=== PATIENT | male | born 1965 | race Caucasian/White ===

== ENCOUNTER 2022-03-13 09:19 | Outpatient (CLI) | payer BC, SELFPAY ==
[2022-03-13 11:11] LABS: Chloride* 105 mmol/L (96-114); Potassium* 4.4 mmol/L (3.6-5.1); Sodium* 141 mmol/L (135-149)
[2022-03-13 11:13] LABS: Cholesterol* 155 mg/dL (90-199); Creatinine* 0.9 mg/dL (0.5-1.5); Estimated Glomerular Filt Rate 101 ml/min
[2022-03-13 11:14] LABS: Alanine Aminotransferase* 30 U/L (4-50); Blood Urea Nitrogen* 17 mg/dL (7-30); Calcium* 9.8 mg/dL (8.4-10.6); Carbon Dioxide* 27 mmol/L (20-32); Glucose* 118 mg/dL (60-115); HDL Cholesterol* 46 mg/dL (>=40); LDL Cholesterol Calculated 73 mg/dL (<100); Triglycerides* 178 mg/dL (40-149)
[2022-03-13 14:41] LABS: PSA Screen* 0.77 ng/mL (0.10-4.00)
== END 2022-03-13 09:20 | disposition home or self-care (01) ==
PROVIDERS: PCP Family Medicine; Visit Provider Family Medicine
DX: E78.5 Hyperlipidemia, unspecified (principal); I10 Essential (primary) hypertension; I25.10 Atherosclerotic heart disease of native coronary artery without angina pectoris; Z12.5 Encounter for screening for malignant neoplasm of prostate
CPT/HCPCS: 80048; 80061; 84153; 84460

== ENCOUNTER 2022-09-11 18:06 | Inpatient (IN) | payer OTHER, SELFPAY ==
[2022-09-11] VITALS (35 sets, daily range): BP systolic 58–154; BP diastolic 35–138; PULSE 56–95; RESP 18; TEMP 36.2–36.6; O2SAT 83–99; BMI 28.9
--- NOTE | 2022-09-11 18:32 | CRLHL7_ITS ---
For Patients: As a result of the Century Cures Act, medical imaging exams and procedure reports are released immediately into your electronic medical record. You may view this report before your referring provider. If you have questions, please contact your health care provider. CLINICAL HISTORY: Vertigo. TECHNIQUE: CTA neck with contrast bolus tracking. 3D angiographic rendering using maximum intensity projection (MIP) and images permanently archived. COMPARISON: None available. FINDINGS: The great vessels are patent. The common carotid arteries are patent. The proximal ICAs are patent without signficant stenoses by NASCET criteria. The more distal cervical ICAs are patent. The origins of the vertebral arteries are patent. The cervical segments of the vertebral arteries are patent. IMPRESSION: Patent cervical arterial vasculature without hemodynamically significant luminal stenosis. Please note that all CT scans at this facility use dose modulation, iterative reconstruction, and/or weight-based dosing when appropriate to reduce radiation dose to as low as reasonably achievable. Dictated by Isaak Gao MD @ 09/11/2022 11:14:45 PM (Electronically Signed)
--- NOTE | 2022-09-11 18:32 | CRLHL7_ITS ---
For Patients: As a result of the Century Cures Act, medical imaging exams and procedure reports are released immediately into your electronic medical record. You may view this report before your referring provider. If you have questions, please contact your health care provider. INDICATION: Vertigo. TECHNIQUE: CT head without contrast. COMPARISON: March 20, 2019. FINDINGS: CSF spaces: Within normal limits for age. Brain parenchyma and extra-axial spaces: The chambers-white differentiation is normal. No sign of mass, hemorrhage, or midline shift. No extra-axial fluid collection. Skull base and calvarium: The visualized paranasal sinuses and mastoid air cells demonstrate no acute or significant findings. The visualized orbits are grossly unremarkable. No skull fractures. IMPRESSION: No acute intracranial abnormality. Please note that all CT scans at this facility use dose modulation, iterative reconstruction, and/or weight-based dosing when appropriate to reduce radiation dose to as low as reasonably achievable. Dictated by Alexis Lane MD @ 09/11/2022 7:37:10 PM (Electronically Signed)
--- NOTE | 2022-09-11 18:32 | CRLHL7_ITS ---
For Patients: As a result of the Century Cures Act, medical imaging exams and procedure reports are released immediately into your electronic medical record. You may view this report before your referring provider. If you have questions, please contact your health care provider. CLINICAL HISTORY: Vertigo. TECHNIQUE: CTA head with contrast bolus tracking. 3D angiographic rendering using maximum intensity projection (MIP) and images permanently archived. COMPARISON: None available. FINDINGS: The petrous, cavernous, and supraclinoid segments of the internal carotid arteries are patent. The anterior and middle cerebral arteries are patent. The anterior communicating artery is visualized and is within normal limits. The intracranial vertebral arteries, basilar trunk, and posterior cerebral arteries are patent. No intracranial proximal large vessel occlusion or flow-limiting luminal stenosis. No evidence of cerebral aneurysm. No findings to suggest an arterial-venous shunting lesion. IMPRESSION: No intracranial proximal large vessel occlusion, flow-limiting luminal stenosis, or cerebral aneurysm. Please note that all CT scans at this facility use dose modulation, iterative reconstruction, and/or weight-based dosing when appropriate to reduce radiation dose to as low as reasonably achievable. Dictated by Isaak Gao MD @ 09/11/2022 11:15:20 PM (Electronically Signed)
--- NOTE | 2022-09-11 18:35 | ED.GENADULT ---
HPI - General Adult General Chief complaint: Neuro Symptoms/Altered Deficit Stated complaint: slurring speech, vomiting Time Seen by Provider: 09/11/22 18:17 History of Present Illness HPI narrative: This 56-year-old male comes in reporting slurred speech since this morning. He also has had vertigo symptoms today. This vertigo is present when he is upright and moving but if he remains still it is absent. He has had some associated nausea and vomiting with vertigo. He does also reports some hearing changes in his left ear. He states that his sense of perception seems altered. His speech seems completely normal to me at this time but his family member states that she thinks that it is not normal. He does not report any unilateral weakness. Related Data Home Medications Medication Instructions Recorded Confirmed ascorbic acid (vitamin C) 250 mg 250 mg PO DAILY 03/12/22 05/08/22 tablet aspirin 81 mg tablet,delayed 81 mg PO QDAY 03/13/22 05/08/22 release (Adult Aspirin Regimen) multivitamin (Daily Multi-Vitamin 1 tab PO QDAY 03/13/22 05/08/22 tablet) albuterol sulfate 90 mcg/actuation 1 puff inhalation Q6-8H PRN 05/07/22 05/07/22 aerosol inhaler nitroglycerin 0.4 mg sublingual 0.4 mg buccal Q5-15M PRN 05/07/22 05/07/22 tablet omeprazole 20 mg capsule,delayed 20 mg PO QDAY 05/07/22 05/07/22 release omega 6-ntk-rsa-fish oil 1,000 mg 2 cap PO QDAY 05/08/22 05/08/22 (120 mg-180 mg) capsule (Fish Oil) Previous Rx's Medication Instructions Recorded clopidogrel 75 mg tablet 75 mg PO QDAY #90 tabs 04/27/22 lisinopril 10 mg tablet 10 mg PO QDAY #90 tabs 04/27/22 metoprolol succinate 50 mg 50 mg PO QDAY #90 tabs 04/27/22 tablet,extended release 24 hr rosuvastatin 40 mg tablet 40 mg PO QDAY #90 tabs 04/27/22 ezetimibe 10 mg tablet (Zetia) 10 mg PO QDAY #90 tabs 05/01/22 fluoxetine 40 mg capsule 40 mg PO QDAY #90 caps 05/08/22 lorazepam 1 mg tablet 1 - 2 mg (1 - 2 x 1 mg) PO TID PRN 05/08/22 anxiety #60 tabs trazodone 100 mg tablet 50 - 100 mg (0.5 - 1 x 100 mg) PO 05/18/22 QHS #90 tabs Allergies Allergy/AdvReac Type Severity Reaction Status Date / Time atorvastatin Allergy Mild muscle Verified 05/08/22 10:20 cramping Review of Systems Status of ROS: Reports: 10 or more systems reviewed and unremarkable except as noted in History and below Narrative: Constitutional: No fevers, no weight gain or loss. Eyes: No discharge. He states that he sees double vision sometimes. HENT: No congestion, no sore throat, no ear pain. Cardiovascular: No chest pain, no palpitations. Respiratory: No shortness of breath, no wheezes, no cough. Gastrointestinal: No abdominal pain, no vomiting, no diarrhea. Genitourinary: No dysuria, no hematuria. Musculoskeletal: Normal range of motion. Skin: No rashes, no pruritis. Neurological: He reports slurred speech and vertigo symptoms. Endo/Heme/Allergies: No bruising or bleeding. No polydipsia. Pysch: no suicidality. All other systems reviewed and are negative. [facility] Medical History (Updated 09/11/22 @ 19:56 by Herman Rahman MD) Adjustment disorder with depressed mood ?F43.21 - Adjustment disorder with depressed mood (ICD-10) Grief ?F43.21 - Adjustment disorder with depressed mood (ICD-10) Contracture of joint of finger of right hand ?M24.541 - Contracture, right hand (ICD-10) Insomnia ?G47.00 - Insomnia, unspecified (ICD-10) Viral gastroenteritis due to [place] virus (01/23/19) ?A08.11 - Acute gastroenteropathy due to [place] agent (ICD-10) Obstructive sleep apnea syndrome ?G47.33 - Obstructive sleep apnea (adult) (pediatric) (ICD-10) Infection due to severe acute respiratory syndrome coronavirus 2 (SARS-CoV-2) (03/2021) ?U07.1 - COVID-19 (ICD-10) Hyperlipidemia ?E78.5 - Hyperlipidemia, unspecified (ICD-10) History of intestinal obstruction (03/01/17) ?Z87.19 - Personal history of other diseases of the digestive system (ICD-10) History of adenomatous polyp of colon (05/03/18) ?Z86.010 - Personal history of colonic polyps (ICD-10) Gastroesophageal reflux disease ?K21.9 - Gastro-esophageal reflux disease without esophagitis (ICD-10) Fracture of facial bone (03/20/19) ?S02.92XA - Unspecified fracture of facial bones, initial encounter for closed fracture (ICD-10) Allergic rhinitis ?J30.9 - Allergic rhinitis, unspecified (ICD-10) Acute pancreatitis ?K85.90 - Acute pancreatitis without necrosis or infection, unspecified (ICD-10) CAD (coronary artery disease) ?I25.10 - Atherosclerotic heart disease of [place] coronary artery without angina pectoris (ICD-10) Surgical History (Updated 03/10/22 @ 13:22 by Sterling Ramirez) History of repair of right rotator cuff ?Z98.890 - Other specified postprocedural states (ICD-10) History of repair of left rotator cuff ?Z98.890 - Other specified postprocedural states (ICD-10) History of lumbar surgery (03/19/15) ?Z98.890 - Other specified postprocedural states (ICD-10) History of laparoscopic cholecystectomy (07/2019) ?Z90.49 - Acquired absence of other specified parts of digestive tract (ICD-10) History of hand surgery ?Z98.890 - Other specified postprocedural states (ICD-10) History of coronary artery stent placement (02/2000) ?Z95.5 - Presence of coronary angioplasty implant and graft (ICD-10) History of colonoscopy (05/03/18) ?Z98.890 - Other specified postprocedural states (ICD-10) History of cataract extraction (09/2018) ?Z98.49 - Cataract extraction status, unspecified eye (ICD-10) History of appendectomy ?Z90.49 - Acquired absence of other specified parts of digestive tract (ICD-10) Family History (Updated 03/10/22 @ 13:27 by Sterling Ramirez) Mother COPD (chronic obstructive pulmonary disease) Father Heart disease Pancreatic cancer Family/Other Prostate cancer Social History (Updated 05/30/22 @ 18:54 by Washington Diaz MD) Narrative: , two sons - one with special needs, construction, non-smoker Smoking Status: Former smoker Little interest or pleasure in doing things: nearly every day Feeling down, depressed, or hopeless: nearly every day Exam Narrative: Exam Narrative: Constitutional: Well-developed, well-nourished, no acute distress. HEENT: Normocephalic, atraumatic. Neck: Normal range of motion. Nontender. Supple. Heart: Regular. No murmurs. Normal rate. Intact distal pulses. Lungs: Clear to auscultation. No chest discomfort. No wheezes, rhonchi, or rales. Abdomen: Normal bowel sounds. Nontender. No rebound tenderness. Genitalia: Deferred. Back: No midline tenderness. Normal range of motion. Extremities: Normal range of motion. No injury. Skin: Intact. No rash. Warm. No erythema or pallor. Neurologic: No altered sensation. No weakness. Alert and oriented. Tongue is midline. No facial asymmetry. Speech seems normal to me. Qypfji-[id number]-uzua is normal. No pronator drift. Photo Editor strength is equal bilaterally. He is able to raise each leg from the bed to touch my hand. Psychiatric: No suicidality. Nursing notes and vitals signs are reviewed. Const: Vital Signs, click to edit/add: Vital Signs - 24 hr 09/11/22 18:09 Temperature 97.8 F Pulse Rate [Right Femoral] 65 Respiratory Rate 18 Blood Pressure [Ri ght Upper Arm] 118/72 Pulse Oximetry 98 Oxygen Delivery Me thod Room Air Course Vital Signs Vital signs: Initial Vital Signs Temperature 97.8 F 09/11/22 18:09 Temperature Source Temporal Artery Scan 09/11/22 18:09 Pulse Rate 65 09/11/22 18:09 Respiratory Rate 18 09/11/22 18:09 Blood Pressure 118/72 09/11/22 18:09 Blood Pressure Mean 87 09/11/22 18:09 Blood Pressure Position Sitting 09/11/22 18:09 Pulse Oximetry 98 09/11/22 18:09 Oxygen Delivery Method Room Air 09/11/22 18:09 Vital Signs Temperature 97.8 F 09/11/22 18:09 Pulse Rate 65 09/11/22 18:09 Respiratory Rate 18 09/11/22 18:09 Blood Pressure 118/72 09/11/22 18:09 Pulse Oximetry 98 09/11/22 18:09 Oxygen Delivery Method Room Air 09/11/22 18:09 Temperature 97.8 F 09/11/22 18:09 Pulse Rate 65 09/11/22 18:09 Respiratory Rate 18 09/11/22 18:09 Blood Pressure 118/72 09/11/22 18:09 Pulse Oximetry 98 09/11/22 18:09 Oxygen Delivery Method Room Air 09/11/22 18:09 Medical Decision Making MDM Narrative Medical decision making narrative: This patient comes in with vertigo symptoms and associated nausea. He states that his speech is slurred however it appears to be completely normal to me. He has a normal neurologic exam. He does not report a headache. He does report some left-sided ringing in his ear and may be showing some vertigo symptoms suggestive of Meniere's disease. An IV was established and labs are acquired. The labs returned with reassuring results. His head CT also is negative. At the end of my shift results for the CT angiogram of his head are yet pending. Dr. Grove will look after these results. Lab Data Labs: Lab Results 09/11/22 Range/Units 18:40 WBC 6.13 (4.50-11.00) K/uL RBC 4.95 (4.30-5.90) m/uL Hgb 15.2 (13.5-17.5) gm/dL Hct 46.5 (37.0-53.0) % MCV 94 (80-100) fL MCH 31 (26-34) pg MCHC 33 (32-36) gm/dL RDW Coeff of Connor 13.8 (11.5-15.5) % Plt Count 186 (140-440) K/uL Neut % (Auto) 84.5 H (42.0-72.0) % Lymph % (Auto) 8.3 L (20-44) % [place]ah % (Auto) 6.7 (0.0-11.0) % Eos % (Auto) 0.3 (0.0-7.0) % Baso % (Auto) 0.0 (0.0-3.0) % Neut # (Auto) 5.20 (1.7-7.0) K/uL Lymph # (Auto) 0.50 L (0.90-2.90) K/uL Sequ[place]ah # (Auto) 0.40 (0.00-0.90) K/UL Eos # (Auto) 0.02 (0.00-0.50) K/uL Baso # (Auto) 0.00 (0.00-0.30) K/uL Abs Immat Gran (auto) 0.01 (0.00-0.30) K/uL Imm/Tot Granulo (auto) 0.2 % Sodium 137 (135-149) mmol/L Potassium 4.2 (3.6-5.1) mmol/L Chloride 101 (96-114) mmol/L Carbon Dioxide 23 (20-32) mmol/L BUN 23 (7-30) mg/dL Creatinine 2.2 H (0.5-1.5) mg/dL Estimated Creat Clear 37.14 Estimated GFR 35 ml/min Glucose 113 (60-115) mg/dL Calcium 9.2 (8.4-10.6) mg/dL Imaging Data CT scan - head: Radiologist's impression: No acute intracranial abnormality. Discharge Plan Discharge Clinical Impression: Vertigo Prescriptions: No Action ascorbic acid (vitamin C) 250 mg tablet 250 mg PO DAILY aspirin [Adult Aspirin Regimen] 81 mg tablet,delayed release (DR/EC) 81 mg PO QDAY multivitamin [Daily Multi-Vitamin] Tablet 1 tab PO QDAY omega 6-xyy-lct-fish oil [Fish Oil] 1,000 mg (120 mg-180 mg) capsule 2 cap PO QDAY ezetimibe [Zetia] 10 mg tablet 10 mg PO QDAY Qty: 90 3RF omeprazole 20 mg capsule,delayed release(DR/EC) 20 mg PO QDAY nitroglycerin 0.4 mg tablet, sublingual 0.4 mg buccal Q5-15M PRN Rx Instructions: PRN CHEST PAIN albuterol sulfate 90 mcg/actuation HFA aerosol inhaler 1 puff inhalation Q6-8H PRN fluoxetine 40 mg capsule 40 mg PO QDAY Qty: 90 1RF lorazepam 1 mg tablet 1 - 2 mg PO TID PRN (Reason: anxiety) Qty: 60 0RF lisinopril 10 mg tablet 10 mg PO QDAY Qty: 90 1RF clopidogrel 75 mg tablet 75 mg PO QDAY Qty: 90 1RF rosuvastatin 40 mg tablet 40 mg PO QDAY Qty: 90 1RF metoprolol succinate 50 mg tablet extended release 24 hr 50 mg PO QDAY Qty: 90 1RF trazodone 100 mg tablet 50 - 100 mg PO QHS Qty: 90 1RF Follow Up/Referrals: Washington Diaz MD [Primary Care Provider] -
[2022-09-11 18:46] LABS: Eosinophils Absolute Auto 0.02 K/uL (0.00-0.50); Eosinophils Percent Auto 0.3 % (0.0-7.0); Hematocrit 46.5 % (37.0-53.0); Hemoglobin* 15.2 gm/dL (13.5-17.5); Immature Granulocytes Abs Auto 0.01 K/uL (0.00-0.30); Immature Granulocytes Pct Auto 0.2 %; Lymphocytes Percent Auto 8.3 % (20-44); Mean Corpuscular HGB Conc 33 gm/dL (32-36); Mean Corpuscular Hemoglobin 31 pg (26-34); Mean Corpuscular Volume 94 fL (80-100); Monocytes Percent Auto 6.7 % (0.0-11.0); Neutrophils Percent Auto 84.5 % (42.0-72.0); Platelet Count* 186 K/uL (140-440); RDW Coefficient of Variation % 13.8 % (11.5-15.5); Red Blood Count 4.95 m/uL (4.30-5.90); White Blood Count* 6.13 K/uL (4.50-11.00)
[2022-09-11 18:47] LABS: Slide Review Reflex No
[2022-09-11] MEDS: ONDANSETRON 2 MG/ML inj 4 MG IVP (18:57)
[2022-09-11] MEDS: MECLIZINE HCL 25 MG TABLET PO (18:57)
--- NOTE | 2022-09-11 19:00 | ED.NURSE ---
Patient to CT.
[2022-09-11 19:01] LABS: Chloride* 101 mmol/L (96-114); Potassium* 4.2 mmol/L (3.6-5.1); Sodium* 137 mmol/L (135-149)
[2022-09-11 19:03] LABS: Creatinine* 2.2 mg/dL (0.5-1.5); Est. Creatinine Clearance* 37.14; Estimated Glomerular Filt Rate 35 ml/min
[2022-09-11 19:04] LABS: Blood Urea Nitrogen* 23 mg/dL (7-30); Calcium* 9.2 mg/dL (8.4-10.6); Carbon Dioxide* 23 mmol/L (20-32); Glucose* 113 mg/dL (60-115)
--- NOTE | 2022-09-11 19:50 | ED.NURSE ---
Pt O2 sats noted to be ~77% on RA. Pt BP also trending lower, around 85 systolic. MD Grove notified. EKG done.
--- NOTE | 2022-09-11 19:50 | ED.NURSE ---
Patient placed on 2L nasal cannula due to low sats.
[2022-09-11] MEDS: 0.9 % SODIUM CHLORIDE 1000 ml 1,000 ML IV ×2 (20:00→22:00)
[2022-09-11 20:24] LABS: Troponin, Point-of-Care* 0.05 ng/ml (0.01-0.04)
[2022-09-11 21:00] LABS: Troponin, Point-of-Care* 0.08 ng/ml (0.01-0.04)
[2022-09-11 21:41] LABS: Chloride* 100 mmol/L (96-114); Potassium* 4.9 mmol/L (3.6-5.1); Sodium* 134 mmol/L (135-149)
--- NOTE | 2022-09-11 21:43 | ED.NURSE ---
Patient wanted to get up to the bathroom. He was able to ambulate but was unsteady and used the calderón for guidance. He than reported he was unable to void. Bedside bladder scan was done with 396ml in bladder. BP's are running low despite bolus. MD is aware. Verbal was given to give additional 1L bolus.
[2022-09-11 21:44] LABS: Carbon Dioxide* 26 mmol/L (20-32); Creatinine* 2.3 mg/dL (0.5-1.5); Est. Creatinine Clearance* 35.52; Estimated Glomerular Filt Rate 33 ml/min
[2022-09-11 21:45] LABS: Blood Urea Nitrogen* 23 mg/dL (7-30); Calcium* 8.5 mg/dL (8.4-10.6); Glucose* 110 mg/dL (60-115)
[2022-09-11 21:50] LABS: Acetaminophen* < 10.0 ug/mL (10.0-30.0); Salicylate* < 1.0 mg/dL (1.0-10)
[2022-09-11] MEDS: NALOXONE 1 MG/ML SYRINGE IV (21:52)
--- NOTE | 2022-09-11 21:58 | ED.NURSE ---
Received call from lab that Trop I was critical at 0.1. Dr. Grove verbally notified at [id number]. Requesting page to cardiology.
--- NOTE | 2022-09-11 22:06 | CRLHL7_ITS ---
For Patients: As a result of the Cures Act, medical imaging exams and procedure reports are released immediately into your electronic medical record. You may view this report before your referring provider. If you have questions, please contact your health care provider. Indication: Weakness Technique: AP view of the chest Comparison: CT chest on May 17, 2020 Findings: Lung volumes are slightly low with bilateral perihilar prominence. No pleural effusion or pneumothorax. Normal heart size. Normal mediastinal contour. No acute fracture. Visualized upper abdomen is unremarkable. Mild right glenohumeral degenerative changes. Impression: Bilateral perihilar prominence is likely due to low lung volumes, less likely pulmonary edema. Dictated by Dain Young MD @ 09/11/2022 10:27:18 PM (Electronically Signed)
[2022-09-11 22:24] LABS: Amphetamine Screen Urine Negative (Negative); Barbiturate Screen Urine Negative (Negative); Cannabinoid Screen Urine Negative (Negative); Cocaine Screen Urine Negative (Negative); Methadone Screen Urine Negative (Negative); Methamphetamines Screen Urine Negative (Negative); Phencyclidine Screen Urine Negative (Negative); Tricyclic Antidepressant Urine Negative (Negative)
[2022-09-11 22:25] LABS: Opiate Screen Urine POSITIVE (Negative); Oxycodone Screen Urine Negative (Negative)
[2022-09-11 22:26] LABS: Benzodiazepines Screen Urine POSITIVE (Negative)
[2022-09-11 22:38] LABS: Ethanol* < 0.01 % (0.01-0.03)
[2022-09-11] MEDS: LACTATED RINGERS 1000 ML IV (23:39)
[2022-09-11 23:40] LABS: HCO3 VBG 25 mmol/L (21-28); PCO2 VBG 55 mmHG (40-50); PO2 VBG 39.4 mmHG (25-47); pH VBG 7.256 (7.32-7.43)
[2022-09-12] VITALS (21 sets, daily range): BP systolic 79–118; BP diastolic 50–78; PULSE 64–78; RESP 12–18; TEMP 36.2–36.8; O2SAT 90–94
--- NOTE | 2022-09-12 00:08 | PM.IMHP1 ---
Hospitalist- H&P: HPI History of Present Illness Date Seen: 09/12/22 Chief complaint: slurring speech, vomiting Narrative: Rohan Duncan (Jim) is a 56 year old male with approximately 1 and half days of onset of severe leg cramps, trouble walking, slurred speech, altered mental status and today multiple episodes of nonbloody emesis. History is primarily obtained from his [id number] who brought him to the emergency room. He does corroborate some of the information. Approximately morning, a day and a half ago he started to have fairly severe leg cramps. Made it painful and difficult for him to walk. By last night he was also slurring his speech and seemed to have altered mental status. Today he vomited 4 times. It was nonbloody. He was not having any abdominal pain. He has had very little to eat and drink today. His mental status is declining. He is having more trouble walking any peers to stagger when he walks. He continues to slur his speech. His in April 2022 after a prolonged newman with cancer. Since then he reports that he has been suffering grief/depression and things have gone downhill for him. He started drinking heavily. He started smoking cigarettes again. He has been taking lorazepam. He feels tired all the time. He has not been eating and drinking well. He thinks he has been losing weight. He acknowledges depression. He has arranged for outpatient therapy starting September 24 at [facility] in [place]. He acknowledges that he feels like he is giving up but denies active suicidality. He denies accidental or intentional ingestion of mood altering substances. In the emergency department his tox screen did show benzodiazepines and opiates. He does acknowledge that he has been using lorazepam 1 mg 2 or 3 times a day and he did take a tramadol tablet today. Initial evaluation the emergency room focused on slurred speech. He had a head CT and CTA which was unremarkable. He received flumazenil and Narcan with improvement in his mental status. He received 2 L of IV fluids but remained hypotensive. Review of Systems Narrative: Limited review of systems secondary to altered mental status. Primary reporting from his [id number] and the patient confirms this is his overall decline in his well being since his and his acute symptoms of leg cramps, vomiting, confusion, unsteady gait in the last day and half. He denies trouble breathing, chest pain, syncope, abdominal pain, diarrhea, constipation, urinary problems. [facility] Medical History (Updated 09/12/22 @ 00:30 by Juan F Maritnez MD) Smoking ?F17.200 - Nicotine dependence, unspecified, uncomplicated (ICD-10) Adjustment disorder with depressed mood ?F43.21 - Adjustment disorder with depressed mood (ICD-10) Grief ?F43.21 - Adjustment disorder with depressed mood (ICD-10) Contracture of joint of finger of right hand ?M24.541 - Contracture, right hand (ICD-10) Insomnia ?G47.00 - Insomnia, unspecified (ICD-10) Viral gastroenteritis due to [place] virus (01/23/19) ?A08.11 - Acute gastroenteropathy due to [place] agent (ICD-10) Obstructive sleep apnea syndrome ?G47.33 - Obstructive sleep apnea (adult) (pediatric) (ICD-10) Infection due to severe acute respiratory syndrome coronavirus 2 (SARS-CoV-2) (03/2021) ?U07.1 - COVID-19 (ICD-10) Hyperlipidemia ?E78.5 - Hyperlipidemia, unspecified (ICD-10) History of intestinal obstruction (03/01/17) ?Z87.19 - Personal history of other diseases of the digestive system (ICD-10) History of adenomatous polyp of colon (05/03/18) ?Z86.010 - Personal history of colonic polyps (ICD-10) Gastroesophageal reflux disease ?K21.9 - Gastro-esophageal reflux disease without esophagitis (ICD-10) Fracture of facial bone (03/20/19) ?S02.92XA - Unspecified fracture of facial bones, initial encounter for closed fracture (ICD-10) Allergic rhinitis ?J30.9 - Allergic rhinitis, unspecified (ICD-10) Acute pancreatitis ?K85.90 - Acute pancreatitis without necrosis or infection, unspecified (ICD-10) CAD (coronary artery disease) ?I25.10 - Atherosclerotic heart disease of [place] coronary artery without angina pectoris (ICD-10) Surgical History History of repair of right rotator cuff ?Z98.890 - Other specified postprocedural states (ICD-10) History of repair of left rotator cuff ?Z98.890 - Other specified postprocedural states (ICD-10) History of lumbar surgery (03/19/15) ?Z98.890 - Other specified postprocedural states (ICD-10) History of laparoscopic cholecystectomy (07/2019) ?Z90.49 - Acquired absence of other specified parts of digestive tract (ICD-10) History of hand surgery ?Z98.890 - Other specified postprocedural states (ICD-10) History of coronary artery stent placement (02/2000) ?Z95.5 - Presence of coronary angioplasty implant and graft (ICD-10) History of colonoscopy (05/03/18) ?Z98.890 - Other specified postprocedural states (ICD-10) History of cataract extraction (09/2018) ?Z98.49 - Cataract extraction status, unspecified eye (ICD-10) History of appendectomy ?Z90.49 - Acquired absence of other specified parts of digestive tract (ICD-10) Family History Mother COPD (chronic obstructive pulmonary disease) Father Heart disease Pancreatic cancer Family/Other Prostate cancer Social History (Updated 09/12/22 @ 00:22 by Juan F Martinez MD) Narrative: , two sons - one with special needs, in April 2022 after a prolonged newman with cancer. He is no longer working. He is living off his 's social security disability. He is caring for his special needs 10-year-old son. Code status is full Formally we had a remote history of smoking and alcohol abuse. Gave this up while he was . Has been drinking heavily and started smoking since his . Currently reports that he drank 36 beers in the last week. Smoking Status: Former smoker Little interest or pleasure in doing things: nearly every day Feeling down, depressed, or hopeless: nearly every day Meds Home Medications and Allergies Allergies Allergy/AdvReac Type Severity Reaction Status Date / Time atorvastatin Allergy Mild muscle Verified 05/08/22 10:20 cramping Exam Narrative: Exam Narrative: He is awake would resting with his eyes closed. He opens his eyes in response when I talk with him. He follows commands and answers questions appropriately though with minimal responses. Head is without obvious trauma except possibly a slight abrasion on the left forehead. Pupils are small. Extraocular movements are full. Visual rodriguez are intact. No facial asymmetry. Oropharynx with small airway. No mucosal abnormalities other than dry mouth. Neck is supple without mass or adenopathy. Respirations with diminished breath sounds but no wheezing rales or rhonchi. Cardiovascular: S1, S2, regular rate and rhythm. Abdomen is soft. Bowel sounds are present he has no tenderness or mass. External genitalia normal. He moves all 4 extremities well and he has intact sensation in all 4 extremities. Good peripheral pulses and good capillary refill in all 4 extremities. Skin is without rash. No edema. No apparent external signs of trauma. Const: Vital Signs, click to edit/add: Vital Signs - 24 hr 09/11/22 18:09 09/11/22 19:22 09/11/22 19:30 Temperature 97.8 F Pulse Rate 83 80 Pulse Rate [Right Femoral] 65 Respiratory Rate 18 Blood Pressure Blood Pressure [Ri ght Arm] Blood Pressure [Ri ght Upper Arm] 118/72 Pulse Oximetry 98 86 L 88 Oxygen Delivery Me thod Room Air Oxygen Flow Rate 09/11/22 19:32 09/11/22 19:45 09/11/22 19:47 Temperature Pulse Rate 80 74 73 Pulse Rate [Right Femoral] Respiratory Rate Blood Pressure 93/46 L 72/43 L Blood Pressure [Ri ght Arm] Blood Pressure [Ri ght Upper Arm] Pulse Oximetry 88 83 L 84 L Oxygen Delivery Me thod Oxygen Flow Rate 09/11/22 19:56 09/11/22 20:00 09/11/22 20:00 Temperature Pulse Rate 80 70 Pulse Rate [Right Femoral] Respiratory Rate Blood Pressure 96/51 L Blood Pressure [Ri ght Arm] Blood Pressure [Ri ght Upper Arm] Pulse Oximetry 86 L 87 L 95 Oxygen Delivery Me thod Nasal Cannula Oxygen Flow Rate 09/11/22 20:01 09/11/22 20:06 09/11/22 20:11 Temperature Pulse Rate 69 71 70 Pulse Rate [Right Femoral] Respiratory Rate Blood Pressure 84/45 L 81/43 L 94/46 L Blood Pressure [Ri ght Arm] Blood Pressure [Ri ght Upper Arm] Pulse Oximetry 86 L 87 L 90 Oxygen Delivery Me thod Oxygen Flow Rate 09/11/22 20:12 09/11/22 20:15 09/11/22 20:22 Temperature Pulse Rate 72 71 72 Pulse Rate [Right Femoral] Respiratory Rate Blood Pressure 84/55 L Blood Pressure [Ri ght Arm] Blood Pressure [Ri ght Upper Arm] Pulse Oximetry 88 88 96 Oxygen Delivery Me thod Oxygen Flow Rate 09/11/22 20:30 09/11/22 20:31 09/11/22 20:41 Temperature Pulse Rate 74 71 Pulse Rate [Right Femoral] Respiratory Rate Blood Pressure 113/58 L 89/50 L Blood Pressure [Ri ght Arm] Blood Pressure [Ri ght Upper Arm] Pulse Oximetry 91 95 Oxygen Delivery Me thod Oxygen Flow Rate 09/11/22 20:45 09/11/22 20:52 09/11/22 21:00 Temperature Pulse Rate 69 71 69 Pulse Rate [Right Femoral] Respiratory Rate Blood Pressure 95/66 Blood Pressure [Ri ght Arm] Blood Pressure [Ri ght Upper Arm] Pulse Oximetry 95 94 95 Oxygen Delivery Me thod Nasal Cannula Oxygen Flow Rate 2 09/11/22 21:15 09/11/22 21:16 09/11/22 21:17 Temperature Pulse Rate 56 L 63 62 Pulse Rate [Right Femoral] Respiratory Rate Blood Pressure 78/46 L Blood Pressure [Ri ght Arm] Blood Pressure [Ri ght Upper Arm] Pulse Oximetry 85 L 94 99 Oxygen Delivery Me thod Oxygen Flow Rate 09/11/22 21:23 09/11/22 21:30 09/11/22 21:31 Temperature Pulse Rate 64 63 64 Pulse Rate [Right Femoral] Respiratory Rate Blood Pressure 67/35 L Blood Pressure [Ri ght Arm] Blood Pressure [Ri ght Upper Arm] Pulse Oximetry 96 98 96 Oxygen Delivery Me thod Oxygen Flow Rate 09/11/22 21:32 09/11/22 21:41 09/11/22 21:45 Temperature Pulse Rate 59 L 62 63 Pulse Rate [Right Femoral] Respiratory Rate Blood Pressure 77/43 L 71/41 L Blood Pressure [Ri ght Arm] Blood Pressure [Ri ght Upper Arm] Pulse Oximetry 98 98 84 L Oxygen Delivery Me thod Oxygen Flow Rate 09/11/22 21:51 09/11/22 22:00 09/11/22 22:03 Temperature Pulse Rate 58 L 76 95 Pulse Rate [Right Femoral] Respiratory Rate Blood Pressure 100/57 L 154/138 H Blood Pressure [Ri ght Arm] Blood Pressure [Ri ght Upper Arm] Pulse Oximetry 98 96 84 L Oxygen Delivery Me thod Oxygen Flow Rate 09/11/22 22:10 09/11/22 22:12 09/11/22 22:41 Temperature 97.2 F L Pulse Rate Pulse Rate [Right Femoral] Respiratory Rate Blood Pressure 58/44 L 114/67 Blood Pressure [Ri ght Arm] Blood Pressure [Ri ght Upper Arm] Pulse Oximetry Oxygen Delivery Me thod Oxygen Flow Rate 09/12/22 00:06 Temperature Pulse Rate Pulse Rate [Right Femoral] Respiratory Rate 14 Blood Pressure Blood Pressure [Ri ght Arm] 80/56 L Blood Pressure [Ri ght Upper Arm] Pulse Oximetry 94 Oxygen Delivery Me thod Nasal Cannula Oxygen Flow Rate 2 Documenting provider has reviewed patient's vital signs: yes Hospitalist - H&P: Result Labs Labs: Short CBC 09/11/22 Range/Units 18:40 WBC 6.13 (4.50-11.00) K/uL Hgb 15.2 (13.5-17.5) gm/dL Hct 46.5 (37.0-53.0) % Plt Count 186 (140-440) K/uL BMP 09/11/22 09/11/22 18:40 21:22 Sodium 137 134 L Potassium 4.2 4.9 Chloride 101 100 Carbon Dioxide 23 26 BUN 23 23 Creatinine 2.2 H 2.3 H Glucose 113 110 Calcium 9.2 8.5 Cardiac Enzymes 09/11/22 Range/Units 21:22 Troponin I 0.10 H* (0.01-0.04) ng/mL ECG Attestation: I personally reviewed and interpreted this ECG as follows: (Normal ECG) Imaging CT scan - head: Radiologist's impression: INDICATION: Vertigo. TECHNIQUE: CT head without contrast. COMPARISON: March 20, 2019. FINDINGS: CSF spaces: Within normal limits for age. Brain parenchyma and extra-axial spaces: The chambers-white differentiation is normal. No sign of mass, hemorrhage, or midline shift. No extra-axial fluid collection. Skull base and calvarium: The visualized paranasal sinuses and mastoid air cells demonstrate no acute or significant findings. The visualized orbits are grossly unremarkable. No skull fractures. IMPRESSION: No acute intracranial abnormality. CLINICAL HISTORY: Vertigo. TECHNIQUE: CTA head with contrast bolus tracking. 3D angiographic rendering using maximum intensity projection (MIP) and images permanently archived. COMPARISON: None available. FINDINGS: The petrous, cavernous, and supraclinoid segments of the internal carotid arteries are patent. The anterior and middle cerebral arteries are patent. The anterior communicating artery is visualized and is within normal limits. The intracranial vertebral arteries, basilar trunk, and posterior cerebral arteries are patent. No intracranial proximal large vessel occlusion or flow-limiting luminal stenosis. No evidence of cerebral aneurysm. No findings to suggest an arterial-venous shunting lesion. IMPRESSION: No intracranial proximal large vessel occlusion, flow-limiting luminal stenosis, or cerebral aneurysm. CLINICAL HISTORY: Vertigo. TECHNIQUE: CTA neck with contrast bolus tracking. 3D angiographic rendering using maximum intensity projection (MIP) and images permanently archived. COMPARISON: None available. FINDINGS: The great vessels are patent. The common carotid arteries are patent. The proximal ICAs are patent without signficant stenoses by NASCET criteria. The more distal cervical ICAs are patent. The origins of the vertebral arteries are patent. The cervical segments of the vertebral arteries are patent. IMPRESSION: Patent cervical arterial vasculature without hemodynamically significant luminal stenosis. Chest x-ray: Radiologist's impression: Indication: Weakness Technique: AP view of the chest Comparison: CT chest on May 17, 2020 Findings: Lung volumes are slightly low with bilateral perihilar prominence. No pleural effusion or pneumothorax. Normal heart size. Normal mediastinal contour. No acute fracture. Visualized upper abdomen is unremarkable. Mild right glenohumeral degenerative changes. Impression: Bilateral perihilar prominence is likely due to low lung volumes, less likely pulmonary edema. Assessment and Plan Assessment and plan (1) Hypotension: Problem comment: Admit to CCU. Treat for sepsis. Evaluate for other causes of shock. Status: Acute (2) Altered mental status: Status: Acute (3) Elevated troponin: Status: Acute (4) Acute kidney injury: Status: Acute (5) Alcohol abuse: Problem comment: History of alcohol abuse. Started drinking heavily since the of his Status: Acute (6) Smoking: Problem comment: Remote history of smoking. Just started smoking again after the of his Status: Acute (7) Grief: Problem comment: Patient has been struggling since April 2022 when his of cancer Status: Acute (8) Obstructive sleep apnea syndrome: Problem comment: severe. AHI=68. see scanned [place] 06/23/16 Sleep Med note. I have asked his lcjnjw-op-xrh to bring his CPAP to the hospital Status: Acute (9) CAD (coronary artery disease): Problem comment: Multiple stents in right coronary in the past Status: Acute (10) Respiratory acidosis: Problem comment: Concern for hypoventilation possibly due to altered mental status Status: Acute Plan Patient is admitted to CCU for evaluation and treatment of hypotension associated with altered mental status, hypoventilation, acute kidney injury, elevated troponin. No clear cause for this constellation of symptoms at this time. Will treat for sepsis and monitor for other causes of shock.
[2022-09-12 00:23] LABS: Creatine Kinase* 171 U/L (54-186)
[2022-09-12 00:27] LABS: C Reactive Protein* 1.1 mg/dL (0.5-1.0)
[2022-09-12 00:39] LABS: Procalcitonin* 0.65 ng/mL (<0.50)
[2022-09-12 00:45] LABS: Appearance Urine Clear (Clear); Bilirubin Urine Negative (Negative); Blood Urine Negative (Negative); Color Urine Yellow (Yellow); Glucose Urine Negative (Negative); Ketones Urine Negative (Negative); Leukocyte Esterase Urine Negative (Negative); Nitrite Urine Negative (Negative); Protein Urine Trace (Negative); Urobilinogen Urine 0.2 (0.2-1.0)
[2022-09-12] MEDS: LACTATED RINGERS 1000 ML 1,000 ML 125 ML IV ×3 (00:46→18:05)
[2022-09-12 00:54] LABS: Thyroid Stimulating Hormone* 0.728 uIU/mL (0.270-4.20)
[2022-09-12 01:01] LABS: RBC Urine 0-2 (0-2)
[2022-09-12 01:02] LABS: Bacteria Urine Few; Squamous Epithelial Cell Urine Few (None-Few); WBC Clumps Urine Few
[2022-09-12 01:04] LABS: Hyaline Casts Urine Few (None-Few); Other Casts Urine Few
[2022-09-12 01:09] LABS: Lipase* 192 U/L (23-300)
[2022-09-12] MEDS: PIPERACILLIN/TAZOBACTAM 3.375 GM in 0.9 % SODIUM CHLORIDE Mini-bag 100 ML IVPB (01:09)
[2022-09-12 01:13] LABS: Uric Acid Crystals Urine Few
[2022-09-12] MEDS: PIPERACILLIN/TAZOBACTAM 2.25 GM in 0.9 % SODIUM CHLORIDE Mini-bag 100 ML IVPB ×4 (06:06→23:45)
--- NOTE | 2022-09-12 06:12 | PC.NURSE ---
: Pt' bp improved after finishing his 3rd bolus thus norepinephrine drip not needed as MAP stay>65, last bp 125/61, tele initally low 60's now 70's nsr, rr remains 12bpm with estrellita noted, needed 3lpm via oxymask beginning of shift now on 1lpm. Vega cath was inserted due to sepsis/lethargic, pt remained lethargic with placement, pt able to open eyes for few seconds and follow quick commands but quickly back to sleep needing loud voice and shaking/rubbing pt's chest, no further defecits noted or stated, denied pain/sob/nausea all shift.
[2022-09-12 06:36] LABS: Albumin* 3.6 g/dL (3.3-5.0); Chloride* 104 mmol/L (96-114); Potassium* 4.3 mmol/L (3.6-5.1); Sodium* 135 mmol/L (135-149)
[2022-09-12 06:38] LABS: Bilirubin Total* 0.3 mg/dL (0.1-1.5)
[2022-09-12 06:39] LABS: Alanine Aminotransferase* 215 U/L (4-50); Alkaline Phosphatase* 71 U/L (40-150); Aspartate Amino Transferase* 117 U/L (12-35); Blood Urea Nitrogen* 22 mg/dL (7-30); Carbon Dioxide* 23 mmol/L (20-32); Glucose* 96 mg/dL (60-115); Total Protein* 5.8 g/dL (6.0-8.3)
[2022-09-12 06:42] LABS: C Reactive Protein* 1.2 mg/dL (0.5-1.0)
[2022-09-12 06:48] LABS: Troponin I* 0.05 ng/mL (0.01-0.04)
[2022-09-12 07:00] LABS: Creatinine* 1.8 mg/dL (0.5-1.5); Est. Creatinine Clearance* 45.39; Estimated Glomerular Filt Rate 44 ml/min
[2022-09-12 07:24] LABS: HCO3 VBG 25 mmol/L (21-28)
[2022-09-12 07:25] LABS: PCO2 VBG 57 mmHG (40-50); PO2 VBG 57.7 mmHG (25-47); pH VBG 7.249 (7.32-7.43)
--- NOTE | 2022-09-12 08:32 | RESP.RT ---
AM VBG's pH 7.25, CO2 57, O2 57, placed on BiPAP at 08:15. Settings documented, additional settings include Rise 2, TI 0.75 seconds, Alarms on and functioning. Patient has Home CPAP, will be brought in.
--- NOTE | 2022-09-12 09:12 | CRLHL7_ITS ---
For Patients: As a result of the Century Cures Act, medical imaging exams and procedure reports are released immediately into your electronic medical record. You may view this report before your referring provider. If you have questions, please contact your health care provider. INDICATION: Hip pain. Fall. TECHNIQUE: Three views. IMPRESSION: Anatomic alignment left hip without fracture. Intact pelvis. No significant degenerative or inflammatory change on the left. Moderate osteoarthritis narrowing on the right. Subchondral cystic lucency in the superior head neck offset. High attenuation presumed excreted IV contrast in the urinary bladder. There is lucent indentation the base which may be bowel gas or potentially median lobe of prostate enlargement. Normal SI joints and symphysis pubis. Dictated by Axel Gates MD @ 09/12/2022 1:44:18 PM (Electronically Signed)
--- NOTE | 2022-09-12 09:36 | REH.OT ---
OT/PT orders received. Chart reviewed and spoke with charge nurse who reports patient started Bipap this am and not appropriate for therapy due to medical status. OT/PT willl hold and check status tomorrow.
[2022-09-12 09:50] LABS: Basophils Absolute Auto 0.01 K/uL (0.00-0.30); Basophils Percent Auto 0.1 % (0.0-3.0); Eosinophils Percent Auto 3.7 % (0.0-7.0); Hematocrit 42.6 % (37.0-53.0); Hemoglobin* 13.5 gm/dL (13.5-17.5); Immature Granulocytes Abs Auto 0.02 K/uL (0.00-0.30); Immature Granulocytes Pct Auto 0.2 %; Lymphocytes Percent Auto 12.1 % (20-44); Mean Corpuscular HGB Conc 32 gm/dL (32-36); Mean Corpuscular Hemoglobin 31 pg (26-34); Mean Corpuscular Volume 98 fL (80-100); Monocytes Percent Auto 6.9 % (0.0-11.0); Platelet Count* 144 K/uL (140-440); Red Blood Count 4.36 m/uL (4.30-5.90); Slide Review Reflex No; White Blood Count* 8.02 K/uL (4.50-11.00)
[2022-09-12 10:15] LABS: HCO3 VBG 25 mmol/L (21-28); PCO2 VBG 51 mmHG (40-50); pH VBG 7.304 (7.32-7.43)
[2022-09-12] MEDS: SODIUM CHLORIDE 0.9 % (FLUSH) 10 ML SYRINGE 5 ML IVF ×4 (11:07→21:33)
--- NOTE | 2022-09-12 14:23 | RESP.RT ---
Patient was on own Home CPAP for 30 minutes, placed at 13:45 PM, SaO2 84%, return to BiPAP at 14:15 PM, on these settings SaO2 increased 93%.
--- NOTE | 2022-09-12 15:05 | PM.IMPN1 ---
Progress Note: A&P Assessment and plan (1) Respiratory acidosis: Problem details: - Suspect CO2 narcosis secondary to WALT and possible EtOH/benzodiazepine OD. - Start BiPAP and monitor VBGs to adjust BiPAP. Status: Acute (2) Altered mental status: Problem details: CTA head reviewed. Labs reviewed. Suspect CO2 narcosis and probable benzodiazepine overdose. May benefit from MRI on Wednesday if he remains somnolent, although focal symptoms of stroke have been identified. Status: Acute (3) Hypotension: Problem details: Admit to CCU. Treat for sepsis. Evaluate for other causes of shock. Status: Resolved (4) Acute kidney injury: Problem details: Improving. Continue IV fluids and recheck in the morning. Status: Acute (5) Obstructive sleep apnea syndrome: Problem details: severe. AHI=68. see scanned [place] 06/23/16 Sleep Med note. His [id number] brought in his CPAP. Status: Chronic (6) Grief: Problem details: Patient has been struggling since April 2022 when his of cancer Status: Chronic (7) Alcohol abuse: Problem details: History of alcohol abuse. Started drinking heavily since the of his . I suspect this is contributed to benzodiazepine overdose and subsequent somnolence. Monitor for signs of withdrawal. Status: Chronic (8) Elevated troponin: Problem details: Peak 0.1 yesterday. EKG done yesterday was unremarkable. Suspect demand ischemia from hypotension. He is already on a baby aspirin, clopidogrel, lisinopril, metoprolol, and rosuvastatin as an outpatient. When he is more awake, restart these. Status: Acute (9) CAD (coronary artery disease): Problem details: Multiple stents in right coronary in the past. Status: Chronic (10) Smoking: Problem details: Remote history of smoking. Just started smoking again after the of his . Status: Chronic Plan 56-year-old male who uses daily lorazepam and alcohol, came in somnolent, had some improvement with Narcan and flumazenil, and is still somnolent this morning. His a respiratory acidosis and elevated CO2, which may account 1st some of the ongoing somnolence. I am not seeing evidence of stroke, however somnolence may be masking this to some degree. CTA head done on admission is reviewed does not show evidence of stroke. May benefit from MRI when able. He has mildly elevated liver enzymes which may be secondary to alcohol, although ALT is greater than AST which is less likely alcohol related. He also has demand ischemia and acute renal failure. Elevated liver enzymes, demand ischemia, and acute renal failure could also be explained by hypotension/shock. He is no longer having low blood pressures. Continue to monitor these values. Treat respiratory acidosis with BiPAP, potential causes discussed above. Time Spent With Patient Total time spent: Critical care time today was 70 minutes which included multiple evaluations of the patient, discussion with staff, and discussion with patient's family. Subjective Time Seen by Provider: 08:00 Date Seen: 09/12/22 Interval history: Mikhail has remained somnalent overnight. He was still somnalent this morning. His son, [id number] and an acquaintance were here around 10:00 a.m., and I went back in the room to chat with them then. At that time Mikhail was slightly more awake, but still sleepy and mostly had his eyes closed. Exam Narrative: Exam Narrative: General: [No acute distress.] [Awake, alert, oriented x3.] [No pallor.] [No jaundice.] Oropharynx: Clear. Mucous membranes [moist]. Cardiovascular: [Regular rate and rhythm]. [No murmurs, gallops, or rubs]. Respiratory: [Clear to auscultation bilaterally. No wheezes or crackles]. Abdomen: Bowel sounds [present]. [Soft, nondistended, nontender]. Extremities: [No] pedal edema. [] He is awake would resting with his eyes closed. He opens his eyes in response when I talk with him. He follows commands and answers questions appropriately though with minimal responses. Head is without obvious trauma except possibly a slight abrasion on the left forehead. Pupils are small. Extraocular movements are full. Visual rodriguez are intact. No facial asymmetry. Oropharynx with small airway. No mucosal abnormalities other than dry mouth. Neck is supple without mass or adenopathy. Respirations with diminished breath sounds but no wheezing rales or rhonchi. Cardiovascular: S1, S2, regular rate and rhythm. Abdomen is soft. Bowel sounds are present he has no tenderness or mass. External genitalia normal. He moves all 4 extremities well and he has intact sensation in all 4 extremities. Good peripheral pulses and good capillary refill in all 4 extremities. Skin is without rash. No edema. No apparent external signs of trauma. Const: Vital Signs, click to edit/add: Vital Signs - 24 hr 09/11/22 18:09 09/11/22 19:22 09/11/22 19:30 Temperature 97.8 F Pulse Rate 83 80 Pulse Rate [Left P ulse Oximeter] Pulse Rate [Right Femoral] 65 Respiratory Rate 18 Blood Pressure Blood Pressure [Le ft Arm] Blood Pressure [Ri ght Arm] Blood Pressure [Ri ght Upper Arm] 118/72 Pulse Oximetry 98 86 L 88 Oxygen Delivery Me thod Room Air Oxygen Flow Rate Fraction of Inspir ed Oxygen 09/11/22 19:32 09/11/22 19:45 09/11/22 19:47 Temperature Pulse Rate 80 74 73 Pulse Rate [Left P ulse Oximeter] Pulse Rate [Right Femoral] Respiratory Rate Blood Pressure 93/46 L 72/43 L Blood Pressure [Le ft Arm] Blood Pressure [Ri ght Arm] Blood Pressure [Ri ght Upper Arm] Pulse Oximetry 88 83 L 84 L Oxygen Delivery Me thod Oxygen Flow Rate Fraction of Inspir ed Oxygen 09/11/22 19:56 09/11/22 20:00 09/11/22 20:00 Temperature Pulse Rate 80 70 Pulse Rate [Left P ulse Oximeter] Pulse Rate [Right Femoral] Respiratory Rate Blood Pressure 96/51 L Blood Pressure [Le ft Arm] Blood Pressure [Ri ght Arm] Blood Pressure [Ri ght Upper Arm] Pulse Oximetry 86 L 87 L 95 Oxygen Delivery Me thod Nasal Cannula Oxygen Flow Rate Fraction of Inspir ed Oxygen 09/11/22 20:01 09/11/22 20:06 09/11/22 20:11 Temperature Pulse Rate 69 71 70 Pulse Rate [Left P ulse Oximeter] Pulse Rate [Right Femoral] Respiratory Rate Blood Pressure 84/45 L 81/43 L 94/46 L Blood Pressure [Le ft Arm] Blood Pressure [Ri ght Arm] Blood Pressure [Ri ght Upper Arm] Pulse Oximetry 86 L 87 L 90 Oxygen Delivery Me thod Oxygen Flow Rate Fraction of Inspir ed Oxygen 09/11/22 20:12 09/11/22 20:15 09/11/22 20:22 Temperature Pulse Rate 72 71 72 Pulse Rate [Left P ulse Oximeter] Pulse Rate [Right Femoral] Respiratory Rate Blood Pressure 84/55 L Blood Pressure [Le ft Arm] Blood Pressure [Ri ght Arm] Blood Pressure [Ri ght Upper Arm] Pulse Oximetry 88 88 96 Oxygen Delivery Me thod Oxygen Flow Rate Fraction of Inspir ed Oxygen 09/11/22 20:30 09/11/22 20:31 09/11/22 20:41 Temperature Pulse Rate 74 71 Pulse Rate [Left P ulse Oximeter] Pulse Rate [Right Femoral] Respiratory Rate Blood Pressure 113/58 L 89/50 L Blood Pressure [Le ft Arm] Blood Pressure [Ri ght Arm] Blood Pressure [Ri ght Upper Arm] Pulse Oximetry 91 95 Oxygen Delivery Me thod Oxygen Flow Rate Fraction of Inspir ed Oxygen 09/11/22 20:45 09/11/22 20:52 09/11/22 21:00 Temperature Pulse Rate 69 71 69 Pulse Rate [Left P ulse Oximeter] Pulse Rate [Right Femoral] Respiratory Rate Blood Pressure 95/66 Blood Pressure [Le ft Arm] Blood Pressure [Ri ght Arm] Blood Pressure [Ri ght Upper Arm] Pulse Oximetry 95 94 95 Oxygen Delivery Me thod Nasal Cannula Oxygen Flow Rate 2 Fraction of Inspir ed Oxygen 09/11/22 21:15 09/11/22 21:16 09/11/22 21:17 Temperature Pulse Rate 56 L 63 62 Pulse Rate [Left P ulse Oximeter] Pulse Rate [Right Femoral] Respiratory Rate Blood Pressure 78/46 L Blood Pressure [Le ft Arm] Blood Pressure [Ri ght Arm] Blood Pressure [Ri ght Upper Arm] Pulse Oximetry 85 L 94 99 Oxygen Delivery Me thod Oxygen Flow Rate Fraction of Inspir ed Oxygen 09/11/22 21:23 09/11/22 21:30 09/11/22 21:31 Temperature Pulse Rate 64 63 64 Pulse Rate [Left P ulse Oximeter] Pulse Rate [Right Femoral] Respiratory Rate Blood Pressure 67/35 L Blood Pressure [Le ft Arm] Blood Pressure [Ri ght Arm] Blood Pressure [Ri ght Upper Arm] Pulse Oximetry 96 98 96 Oxygen Delivery Me thod Oxygen Flow Rate Fraction of Inspir ed Oxygen 09/11/22 21:32 09/11/22 21:41 09/11/22 21:45 Temperature Pulse Rate 59 L 62 63 Pulse Rate [Left P ulse Oximeter] Pulse Rate [Right Femoral] Respiratory Rate Blood Pressure 77/43 L 71/41 L Blood Pressure [Le ft Arm] Blood Pressure [Ri ght Arm] Blood Pressure [Ri ght Upper Arm] Pulse Oximetry 98 98 84 L Oxygen Delivery Me thod Oxygen Flow Rate Fraction of Inspir ed Oxygen 09/11/22 21:51 09/11/22 22:00 09/11/22 22:03 Temperature Pulse Rate 58 L 76 95 Pulse Rate [Left P ulse Oximeter] Pulse Rate [Right Femoral] Respiratory Rate Blood Pressure 100/57 L 154/138 H Blood Pressure [Le ft Arm] Blood Pressure [Ri ght Arm] Blood Pressure [Ri ght Upper Arm] Pulse Oximetry 98 96 84 L Oxygen Delivery Me thod Oxygen Flow Rate Fraction of Inspir ed Oxygen 09/11/22 22:10 09/11/22 22:12 09/11/22 22:41 Temperature 97.2 F L Pulse Rate Pulse Rate [Left P ulse Oximeter] Pulse Rate [Right Femoral] Respiratory Rate Blood Pressure 58/44 L 114/67 Blood Pressure [Le ft Arm] Blood Pressure [Ri ght Arm] Blood Pressure [Ri ght Upper Arm] Pulse Oximetry Oxygen Delivery Me thod Oxygen Flow Rate Fraction of Inspir ed Oxygen 09/12/22 00:06 09/12/22 00:11 09/12/22 00:43 Temperature 97.2 F L Pulse Rate Pulse Rate [Left P ulse Oximeter] 73 Pulse Rate [Right Femoral] Respiratory Rate 14 14 12 Blood Pressure Blood Pressure [Le ft Arm] Blood Pressure [Ri ght Arm] 80/56 L 80/56 L 103/54 L Blood Pressure [Ri ght Upper Arm] Pulse Oximetry 94 94 91 Oxygen Delivery Me thod Nasal Cannula Nasal Cannula Nasal Cannula Oxygen Flow Rate 2 2 2 Fraction of Inspir ed Oxygen 09/12/22 01:00 09/12/22 01:25 09/12/22 01:26 Temperature Pulse Rate Pulse Rate [Left P ulse Oximeter] 71 Pulse Rate [Right Femoral] Respiratory Rate 12 12 Blood Pressure Blood Pressure [Le ft Arm] 97/54 L Blood Pressure [Ri ght Arm] 79/64 L Blood Pressure [Ri ght Upper Arm] Pulse Oximetry 91 Oxygen Delivery Me thod OxyMask OxyMask Oxygen Flow Rate 3 3 Fraction of Inspir ed Oxygen 09/12/22 01:42 09/12/22 02:07 09/12/22 02:39 Temperature Pulse Rate Pulse Rate [Left P ulse Oximeter] 72 Pulse Rate [Right Femoral] Respiratory Rate Blood Pressure Blood Pressure [Le ft Arm] 103/52 L 109/53 L 108/50 L Blood Pressure [Ri ght Arm] Blood Pressure [Ri ght Upper Arm] Pulse Oximetry 91 Oxygen Delivery Me thod OxyMask Oxygen Flow Rate 3 Fraction of Inspir ed Oxygen 09/12/22 03:00 09/12/22 04:00 09/12/22 05:00 Temperature 98 F Pulse Rate Pulse Rate [Left P ulse Oximeter] 68 Pulse Rate [Right Femoral] Respiratory Rate 12 Blood Pressure Blood Pressure [Le ft Arm] 106/56 L 100/60 109/58 L Blood Pressure [Ri ght Arm] Blood Pressure [Ri ght Upper Arm] Pulse Oximetry 90 Oxygen Delivery Me thod OxyMask Oxygen Flow Rate 1 Fraction of Inspir ed Oxygen 09/12/22 07:00 09/12/22 07:00 09/12/22 07:00 Temperature 97.9 F Pulse Rate Pulse Rate [Left P ulse Oximeter] 78 78 Pulse Rate [Right Femoral] Respiratory Rate 16 18 18 Blood Pressure Blood Pressure [Le ft Arm] 110/55 L Blood Pressure [Ri ght Arm] Blood Pressure [Ri ght Upper Arm] Pulse Oximetry 90 91 Oxygen Delivery Me thod OxyMask OxyMask Oxygen Flow Rate 1 1 Fraction of Inspir ed Oxygen 09/12/22 07:00 09/12/22 08:15 09/12/22 08:28 Temperature Pulse Rate 75 Pulse Rate [Left P ulse Oximeter] Pulse Rate [Right Femoral] Respiratory Rate 18 Blood Pressure Blood Pressure [Le ft Arm] Blood Pressure [Ri ght Arm] Blood Pressure [Ri ght Upper Arm] Pulse Oximetry 92 Oxygen Delivery Me thod BiPAP Oxygen Flow Rate Fraction of Inspir ed Oxygen 30 30 09/12/22 09:00 09/12/22 10:30 09/12/22 11:00 Temperature 97.9 F 98.1 F Pulse Rate Pulse Rate [Left P ulse Oximeter] 78 71 Pulse Rate [Right Femoral] Respiratory Rate 18 18 Blood Pressure Blood Pressure [Le ft Arm] 118/62 111/57 L Blood Pressure [Ri ght Arm] Blood Pressure [Ri ght Upper Arm] Pulse Oximetry 92 92 Oxygen Delivery Me thod BiPAP BiPAP Oxygen Flow Rate 1 1 Fraction of Inspir ed Oxygen 30 30 30 09/12/22 14:20 Temperature Pulse Rate Pulse Rate [Left P ulse Oximeter] Pulse Rate [Right Femoral] Respiratory Rate Blood Pressure Blood Pressure [Le ft Arm] Blood Pressure [Ri ght Arm] Blood Pressure [Ri ght Upper Arm] Pulse Oximetry Oxygen Delivery Me thod Oxygen Flow Rate Fraction of Inspir ed Oxygen 30 Documenting provider has reviewed patient's vital signs: yes Labs Labs: Laboratory Results - last 24 hr 09/11/22 09/11/22 09/11/22 18:40 18:45 20:23 WBC 6.13 RBC 4.95 Hgb 15.2 Hct 46.5 MCV 94 MCH 31 MCHC 33 RDW Coeff of Connor 13.8 Plt Count 186 Neut % (Auto) 84.5 H Lymph % (Auto) 8.3 L [place] % (Auto) 6.7 Eos % (Auto) 0.3 Baso % (Auto) 0.0 Neut # (Auto) 5.20 Lymph # (Auto) 0.50 L [place] # (Auto) 0.40 Eos # (Auto) 0.02 Baso # (Auto) 0.00 Abs Immat Gran (auto) 0.01 Imm/Tot Granulo (auto) 0.2 VBG pH VBG pCO2 VBG pO2 VBG HCO3 Sodium 137 Potassium 4.2 Chloride 101 Carbon Dioxide 23 BUN 23 Creatinine 2.2 H Estimated Creat Clear 37.14 Estimated GFR 35 Glucose 113 Lactate Calcium 9.2 Total Bilirubin AST ALT Alkaline Phosphatase Total Creatine Kinase Troponin I C-Reactive Protein Total Protein Albumin Lipase Procalcitonin TSH Urine Color Urine Appearance Urine pH Ur Specific [place] Urine Protein Urine Glucose (UA) Urine Ketones Urine Blood Urine Nitrite Urine Bilirubin Urine Urobilinogen Ur Leukocyte Esterase Urine RBC Urine WBC Urine WBC Clumps Ur Squamous Epith Cells Uric Acid Crystals Urine Bacteria Hyaline Casts Other Casts Salicylates Urine Opiates Screen Ur Oxycodone Screen Urine Methadone Screen Ur Propoxyphene Screen Acetaminophen Ur Barbiturates Screen U Tricyclic Antidepress Ur Phencyclidine Scrn Ur Amphetamines Screen U Methamphetamines Scrn U Benzodiazepines Scrn Urine Cocaine Screen U Marijuana (THC) Screen Ur Drug Screen Comment Ethyl Alcohol Lab Acknowledgement POC Troponin I 0.05 H 0.08 H 09/11/22 09/11/22 09/11/22 21:22 22:05 23:30 WBC RBC Hgb Hct MCV MCH MCHC RDW Coeff of Connor Plt Count Neut % (Auto) Lymph % (Auto) [place] % (Auto) Eos % (Auto) Baso % (Auto) Neut # (Auto) Lymph # (Auto) [place] # (Auto) Eos # (Auto) Baso # (Auto) Abs Immat Gran (auto) Imm/Tot Granulo (auto) VBG pH 7.256 L VBG pCO2 55 H VBG pO2 39.4 VBG HCO3 25 Sodium 134 L Potassium 4.9 Chloride 100 Carbon Dioxide 26 BUN 23 Creatinine 2.3 H Estimated Creat Clear 35.52 Estimated GFR 33 Glucose 110 Lactate 1.0 Calcium 8.5 Total Bilirubin AST ALT Alkaline Phosphatase Total Creatine Kinase 171 Troponin I 0.10 H* C-Reactive Protein 1.1 H Total Protein Albumin Lipase 192 Procalcitonin 0.65 H TSH 0.728 Urine Color Yellow Urine Appearance Clear Urine pH 5.0 Ur Specific [place] 1.010 Urine Protein Trace A Urine Glucose (UA) Negative Urine Ketones Negative Urine Blood Negative Urine Nitrite Negative Urine Bilirubin Negative Urine Urobilinogen 0.2 Ur Leukocyte Esterase Negative Urine RBC 0-2 Urine WBC 5-10 A Urine WBC Clumps Few A Ur Squamous Epith Cells Few Uric Acid Crystals Few A Urine Bacteria Few A Hyaline Casts Few Other Casts Few A Salicylates < 1.0 L Urine Opiates Screen POSITIVE A* Ur Oxycodone Screen Negative Urine Methadone Screen Negative Ur Propoxyphene Screen Negative Acetaminophen < 10.0 L Ur Barbiturates Screen Negative U Tricyclic Antidepress Negative Ur Phencyclidine Scrn Negative Ur Amphetamines Screen Negative U Methamphetamines Scrn Negative U Benzodiazepines Scrn POSITIVE A* Urine Cocaine Screen Negative U Marijuana (THC) Screen Negative Ur Drug Screen Comment See Note Ethyl Alcohol < 0.01 L Lab Acknowledgement Test Added Test Added POC Troponin I 09/12/22 09/12/22 09/12/22 06:08 09:43 10:07 WBC 8.02 RBC 4.36 Hgb 13.5 Hct 42.6 MCV 98 MCH 31 MCHC 32 RDW Coeff of Connor 14.0 Plt Count 144 Neut % (Auto) 77.0 H Lymph % (Auto) 12.1 L [place] % (Auto) 6.9 Eos % (Auto) 3.7 Baso % (Auto) 0.1 Neut # (Auto) 6.20 Lymph # (Auto) 1.00 [place] # (Auto) 0.60 Eos # (Auto) 0.30 Baso # (Auto) 0.01 Abs Immat Gran (auto) 0.02 Imm/Tot Granulo (auto) 0.2 VBG pH 7.249 L* 7.304 L VBG pCO2 57 H 51 H VBG pO2 57.7 H 60.0 H VBG HCO3 25 25 Sodium 135 Potassium 4.3 Chloride 104 Carbon Dioxide 23 BUN 22 Creatinine 1.8 H Estimated Creat Clear 45.39 Estimated GFR 44 Glucose 96 Lactate 1.0 Calcium 8.0 L Total Bilirubin 0.3 AST 117 H ALT 215 H Alkaline Phosphatase 71 Total Creatine Kinase Troponin I 0.05 H C-Reactive Protein 1.2 H Total Protein 5.8 L Albumin 3.6 Lipase Procalcitonin TSH Urine Color Urine Appearance Urine pH Ur Specific [place] Urine Protein Urine Glucose (UA) Urine Ketones Urine Blood Urine Nitrite Urine Bilirubin Urine Urobilinogen Ur Leukocyte Esterase Urine RBC Urine WBC Urine WBC Clumps Ur Squamous Epith Cells Uric Acid Crystals Urine Bacteria Hyaline Casts Other Casts Salicylates Urine Opiates Screen Ur Oxycodone Screen Urine Methadone Screen Ur Propoxyphene Screen Acetaminophen Ur Barbiturates Screen U Tricyclic Antidepress Ur Phencyclidine Scrn Ur Amphetamines Screen U Methamphetamines Scrn U Benzodiazepines Scrn Urine Cocaine Screen U Marijuana (THC) Screen Ur Drug Screen Comment Ethyl Alcohol Lab Acknowledgement Test Added POC Troponin I
--- NOTE | 2022-09-12 16:02 | RESP.RT ---
Respiratory Goal for tonight; Patient is to use BiPAP on these settings FiO2 30%, IPAP 16, EPAP 8, Rate 12, to maintain SaO2 >90%. Increase Oxygen as needed. If SaO2 stays >96% Oxygen can be weaned slowly. Prior wean of Oxygen to 28% and 25% patient has decreased SaO2 in to the low-middle 80's.
[2022-09-12] MEDS: ACETAMINOPHEN 325 MG TABLET 650 MG PO (20:08)
[2022-09-12] MEDS: ENOXAPARIN 40 MG/0.4 ML INJ SUBCUT (21:32)
[2022-09-12] MEDS: MELATONIN 3 MG TABLET PO (21:44)
[2022-09-13 00:01] VITALS: PULSE 72
[2022-09-13 00:03] VITALS: PULSE 64; RESP 14; O2SAT 90
[2022-09-13 04:04] VITALS: BP 136/74; PULSE 66; RESP 14; TEMP 36.8; O2SAT 90
[2022-09-13] MEDS: PIPERACILLIN/TAZOBACTAM 2.25 GM in 0.9 % SODIUM CHLORIDE Mini-bag 100 ML IVPB (06:31)
--- NOTE | 2022-09-13 06:35 | PC.NURSE ---
-: Pt more alert/able to keep eyes open and hold a conversation beginning of shift, thus ambulated in room/brushed teeth and removed chamberlain per request, pt voiding adequately since. VSS on RA when awake, pt tolerated bipap for a couple hours last night then refused along with his cpap. Tele nsr 60-70s. No neuro defecits noted/stated besides being groggy.
[2022-09-13 07:00] VITALS: PULSE 66; PULSE 87; RESP 16; O2SAT 92
[2022-09-13 07:48] LABS: Basophils Absolute Auto 0.02 K/uL (0.00-0.30); Basophils Percent Auto 0.4 % (0.0-3.0); Eosinophils Percent Auto 9.9 % (0.0-7.0); Hematocrit 40.1 % (37.0-53.0); Hemoglobin* 13.1 gm/dL (13.5-17.5); Lymphocytes Percent Auto 17.2 % (20-44); Mean Corpuscular HGB Conc 33 gm/dL (32-36); Mean Corpuscular Hemoglobin 31 pg (26-34); Mean Corpuscular Volume 95 fL (80-100); Monocytes Percent Auto 7.4 % (0.0-11.0); Neutrophils Absolute Auto 3.63 K/uL (1.7-7.0); Neutrophils Percent Auto 65.1 % (42.0-72.0); Platelet Count* 146 K/uL (140-440); RDW Coefficient of Variation % 13.5 % (11.5-15.5); Red Blood Count 4.22 m/uL (4.30-5.90); White Blood Count* 5.57 K/uL (4.50-11.00)
[2022-09-13 08:00] VITALS: BP 150/77; PULSE 66; RESP 16; TEMP 36.6; O2SAT 92
[2022-09-13 08:01] LABS: Albumin* 3.4 g/dL (3.3-5.0); Chloride* 106 mmol/L (96-114); Potassium* 4.1 mmol/L (3.6-5.1); Sodium* 135 mmol/L (135-149)
[2022-09-13 08:03] LABS: Bilirubin Total* 0.3 mg/dL (0.1-1.5); Carbon Dioxide* 26 mmol/L (20-32); Creatinine* 0.9 mg/dL (0.5-1.5); Est. Creatinine Clearance* 90.78; Estimated Glomerular Filt Rate 101 ml/min
[2022-09-13 08:04] LABS: Alanine Aminotransferase* 132 U/L (4-50); Alkaline Phosphatase* 76 U/L (40-150); Aspartate Amino Transferase* 57 U/L (12-35); Blood Urea Nitrogen* 16 mg/dL (7-30); Glucose* 127 mg/dL (60-115); Total Protein* 5.6 g/dL (6.0-8.3)
[2022-09-13 08:10] LABS: Slide Review Reflex No
--- NOTE | 2022-09-13 10:29 | RESP.RT ---
Patient sittng up in chair on room air, RR 18/minute, breathing regular/easy. Patient wore BiPAP early evening then declined it and Home CPAP. Discharged today.
--- NOTE | 2022-09-13 10:31 | P.DS_ITS ---
DS: Providers Provider Time Seen by Provider: 08:50 Date Seen: 09/13/22 Date of admission: 09/11/22 23:37 Primary care physician: Washington Diaz MD Admitting Clinician: Juan F Martinez MD Consults: 09/11/22 23:30 Consult to Occupational Therapy [CONS] Routine Comment: Reason(s) for OT Consult:: Evaluate and Treat Any Restrictions?:: No Restrictions Consult to Physical Therapy [CONS] Routine Comment: Reason(s) for PT Consult:: Evaluate and Treat Any Restrictions?:: No Restrictions Consult to Chemical Lab Supervisor [CONS] Routine Comment: Reason for Consult:: Discharge Planning Needs Attending Physician on discharge: Carolina Narvaez MD Date of Discharge: 09/13/22 DS: Diagnosis Discharge Diagnosis (1) Respiratory acidosis: Status: Acute Problem details: - Suspect CO2 narcosis secondary to WALT and possible EtOH/benzodiazepine OD. - Start BiPAP and monitor VBGs to adjust BiPAP. (2) Hypotension: Status: Resolved Problem details: Suspect secondary to OD, did not appear septic (3) Altered mental status: Status: Resolved Problem details: CTA head reviewed. Labs reviewed. Suspect CO2 narcosis and probable benzodiazepine overdose. No focal deficits. He agreed to stop lorazepam altogether, but declined stopping or cutting down on alcohol. (4) Elevated troponin: Status: Acute Problem details: Peak 0.1 yesterday. EKG done 09/11/22 was unremarkable. Suspect demand ischemia from hypotension. He is already on a baby aspirin, clopidogrel, lisinopril, metoprolol, and rosuvastatin as an outpatient. Restart these medications today. (5) Acute kidney injury: Status: Resolved Problem details: Suspect dehydration/hypotension (6) Alcohol abuse: Status: Chronic Problem details: History of alcohol abuse. Started drinking heavily since the of his . I suspect this is contributed to benzodiazepine overdose and subsequent somnolence. He has little insight into alcohol use/abuse. I informed him of the sequela of alcohol use in the setting of sleep apnea and depression as well as the elevated liver enzymes and that I strongly recommend complete abstinence from alcohol at this point. He stated that he is not going to quit or cut down because it is the only thing that keeps me freaking sane. I asked him to discuss this with his therapist. (7) Adjustment disorder with depressed mood: Status: Acute Problem details: Conversation with him as above in alcohol abuse. He has agreed to stop lorazepam. He completely shut down when I discussed his mood and medications. I offered a DEC assessment, and he refused. He stated that he has an appointment with a therapist at [facility] on September 24. Contracted for safety and agreed to see his primary care doctor this coming week to discuss starting something different for depression. (8) Grief: Status: Chronic Problem details: Patient has been struggling since April 2022 when his of cancer (9) Obstructive sleep apnea syndrome: Status: Chronic Problem details: severe. AHI=68. see scanned [place] 06/23/16 Sleep Med note. Continue CPAP use. (10) Hyperlipidemia: Status: Chronic Problem details: Continue statin (11) CAD (coronary artery disease): Status: Chronic Problem details: Multiple stents in right coronary in the past. Continue medications as above. (12) Gastroesophageal reflux disease: Status: Acute DS: Summary Hospital Course Hospital Course: This is a 56-year-old male was been suffering from severe grief and depression after his in April 2022 from a prolonged newman with cancer. He has been drinking heavily since that time and started taking lorazepam a week and half ago. His ltixyt-an-urr brought him to the emergency department with a day and have onset of severe leg cramps, nonbloody emesis, difficulty walking, slurred speech, and altered mental status. He denied any accidental or intentional ingestion of mood altering substances. His tox screen was positive for benzodiazepines and opiates. He acknowledged that he had been taking lorazepam as well as tramadol as prescribed. He was given flumazenil and Narcan with some improvement in his mental status. He was also notably very hypotensive and was given IV fluid boluses with good affect. He had acute renal failure and mild troponin elevation that have resolved. Echocardiogram and EKGs have been unremarkable. CTA was unremarkable and there was no other evidence for stroke. He was noted to have CO2 narcosis with respiratory acidosis for which he was started on BiPAP. Over the next day he improved and is now back to his baseline mental status. He has no focal deficits to suggest stroke. In conversation with him today he appears severely depressed, but declines DEC assessment and contracts for safety. I have asked him to keep his appointment to establish with therapy on 09/24/2022 and to see his primary care provider this week to talk about starting a different medication than lorazepam for depression. I have also strongly recommended to him and his ixlfib-px-tky that he quit all alcohol use. He is discharged home in improved and stable condition. Please see diagnoses above for further details. Time Spent with Patient Time attestation: Total time spent providing and/or coordinating discharge services: 50 minutes, including a total of 30 minutes conversation with both the patient and his [id number]-bbw, Radha. Exam Narrative: Exam Narrative: General: Severely depressed affect, shut down at times with eyes closed and no verbal response for several minutes during our conversation. Awake, alert, oriented x3. No pallor. No jaundice. Oropharynx: Clear. Mucous membranes moist. Cardiovascular: Regular rate and rhythm. No murmurs, gallops, or rubs. Respiratory: Clear to auscultation bilaterally. No wheezes or crackles. Abdomen: Bowel sounds present. Soft, nondistended, nontender. Extremities: No pedal edema. Const: Vital Signs, click to edit/add: Vital Signs - 24 hr 09/12/22 11:00 09/12/22 13:00 09/12/22 14:20 Temperature 98.1 F 97.8 F Pulse Rate Pulse Rate [Left P ulse Oximeter] 71 75 Respiratory Rate 18 18 Blood Pressure [Le ft Arm] 111/57 L 98/58 L Pulse Oximetry 92 92 Oxygen Delivery Me thod BiPAP BiPAP Oxygen Flow Rate 1 1 Fraction of Inspir ed Oxygen 30 30 30 09/12/22 15:00 09/12/22 15:00 09/12/22 15:00 Temperature 97.8 F Pulse Rate 72 Pulse Rate [Left P ulse Oximeter] 75 Respiratory Rate 18 18 Blood Pressure [Le ft Arm] 99/53 L Pulse Oximetry 92 92 Oxygen Delivery Me thod BiPAP Room Air BiPAP Oxygen Flow Rate 1 Fraction of Inspir ed Oxygen 30 09/12/22 15:00 09/12/22 17:00 09/12/22 19:00 Temperature 98.1 F 98.3 F Pulse Rate Pulse Rate [Left P ulse Oximeter] 75 73 72 Respiratory Rate 18 18 14 Blood Pressure [Le ft Arm] 114/68 107/57 L Pulse Oximetry 92 94 Oxygen Delivery Me thod Room Air BiPAP Room Air Oxygen Flow Rate 1 Fraction of Inspir ed Oxygen 30 09/12/22 23:00 09/13/22 00:01 09/13/22 00:03 Temperature 97.9 F Pulse Rate 72 Pulse Rate [Left P ulse Oximeter] 64 64 Respiratory Rate 14 Blood Pressure [Le ft Arm] 116/78 Pulse Oximetry 90 Oxygen Delivery Me thod BiPAP Oxygen Flow Rate Fraction of Inspir ed Oxygen 09/13/22 00:03 09/13/22 04:04 09/13/22 07:00 Temperature 98.2 F Pulse Rate 87 Pulse Rate [Left P ulse Oximeter] 66 Respiratory Rate 14 14 Blood Pressure [Le ft Arm] 136/74 Pulse Oximetry 90 90 Oxygen Delivery Me thod BiPAP Room Air Oxygen Flow Rate 1 Fraction of Inspir ed Oxygen 30 09/13/22 07:00 09/13/22 07:00 09/13/22 08:00 Temperature 97.9 F Pulse Rate Pulse Rate [Left P ulse Oximeter] 66 66 Respiratory Rate 16 16 16 Blood Pressure [Le ft Arm] 150/77 H Pulse Oximetry 92 92 Oxygen Delivery Me thod Room Air Room Air Oxygen Flow Rate Fraction of Inspir ed Oxygen Documenting provider has reviewed patient's vital signs: yes DS: Data Data Completed and Pending Completed studies during hospitalization: 09/11/2022 EKG: Normal sinus rhythm, 63 beats per minute, normal EKG. Ordering Physician: Herman Rahman M.D. Date of Service: 09/11/22 Procedure(s): CT head/brain wo con Accession Number(s): [id number] cc: Herman Rahman M.D.; Washington Diaz M.D.~ For Patients: As a result of the Century Cures Act, medical imaging exams and procedure reports are released immediately into your electronic medical record. You may view this report before your referring provider. If you have questions, please contact your health care provider. INDICATION: Vertigo. TECHNIQUE: CT head without contrast. COMPARISON: March 20, 2019. FINDINGS: CSF spaces: Within normal limits for age. Brain parenchyma and extra-axial spaces: The chambers-white differentiation is normal. No sign of mass, hemorrhage, or midline shift. No extra-axial fluid collection. Skull base and calvarium: The visualized paranasal sinuses and mastoid air cells demonstrate no acute or significant findings. The visualized orbits are grossly unremarkable. No skull fractures. IMPRESSION: No acute intracranial abnormality. Please note that all CT scans at this facility use dose modulation, iterative reconstruction, and/or weight-based dosing when appropriate to reduce radiation dose to as low as reasonably achievable. Dictated by Alexis Lane MD @ 09/11/2022 7:37:10 PM (Electronically Signed) Ordering Physician: Herman Rahman M.D. Date of Service: 09/11/22 Procedure(s): CT angio head Accession Number(s): [id number] cc: Herman Rahman M.D.; Washington Diaz M.D.~ For Patients: As a result of the Cures Act, medical imaging exams and procedure reports are released immediately into your electronic medical record. You may view this report before your referring provider. If you have questions, please contact your health care provider. CLINICAL HISTORY: Vertigo. TECHNIQUE: CTA head with contrast bolus tracking. 3D angiographic rendering using maximum intensity projection (MIP) and images permanently archived. COMPARISON: None available. FINDINGS: The petrous, cavernous, and supraclinoid segments of the internal carotid arteries are patent. The anterior and middle cerebral arteries are patent. The anterior communicating artery is visualized and is within normal limits. The intracranial vertebral arteries, basilar trunk, and posterior cerebral arteries are patent. No intracranial proximal large vessel occlusion or flow-limiting luminal stenosis. No evidence of cerebral aneurysm. No findings to suggest an arterial-venous shunting lesion. IMPRESSION: No intracranial proximal large vessel occlusion, flow-limiting luminal stenosis, or cerebral aneurysm. Please note that all CT scans at this facility use dose modulation, iterative reconstruction, and/or weight-based dosing when appropriate to reduce radiation dose to as low as reasonably achievable. Dictated by Isaak Gao MD @ 09/11/2022 11:15:20 PM (Electronically Signed) Ordering Physician: Herman Rahman M.D. Date of Service: 09/11/22 Procedure(s): CT angio neck Accession Number(s): [id number] cc: Herman Rahman M.D.; Washington Diaz M.D.~ For Patients: As a result of the Cures Act, medical imaging exams and procedure reports are released immediately into your electronic medical record. You may view this report before your referring provider. If you have questions, please contact your health care provider. CLINICAL HISTORY: Vertigo. TECHNIQUE: CTA neck with contrast bolus tracking. 3D angiographic rendering using maximum intensity projection (MIP) and images permanently archived. COMPARISON: None available. FINDINGS: The great vessels are patent. The common carotid arteries are patent. The proximal ICAs are patent without signficant stenoses by NASCET criteria. The more distal cervical ICAs are patent. The origins of the vertebral arteries are patent. The cervical segments of the vertebral arteries are patent. IMPRESSION: Patent cervical arterial vasculature without hemodynamically significant luminal stenosis. Please note that all CT scans at this facility use dose modulation, iterative reconstruction, and/or weight-based dosing when appropriate to reduce radiation dose to as low as reasonably achievable. Dictated by Isaak Gao MD @ 09/11/2022 11:14:45 PM (Electronically Signed) Ordering Physician: Bong Grove M.D. Date of Service: 09/11/22 Procedure(s): XR chest 1V portable Accession Number(s): [id number] cc: Washington Diaz M.D.; Bong Grove M.D.~ For Patients: As a result of the Cures Act, medical imaging exams and procedure reports are released immediately into your electronic medical record. You may view this report before your referring provider. If you have questions, please contact your health care provider. Indication: Weakness Technique: AP view of the chest Comparison: CT chest on May 17, 2020 Findings: Lung volumes are slightly low with bilateral perihilar prominence. No pleural effusion or pneumothorax. Normal heart size. Normal mediastinal contour. No acute fracture. Visualized upper abdomen is unremarkable. Mild right glenohumeral degenerative changes. Impression: Bilateral perihilar prominence is likely due to low lung volumes, less likely pulmonary edema. Dictated by Dain Young MD @ 09/11/2022 10:27:18 PM (Electronically Signed) Ordering Physician: Carolina Narvaez M.D. Date of Service: 09/12/22 Procedure(s): XR hip LT min 2V Accession Number(s): [id number] cc: Carolina Narvaez M.D.; Washington Diaz M.D.~ For Patients: As a result of the 21st Century Cures Act, medical imaging exams and procedure reports are released immediately into your electronic medical record. You may view this report before your referring provider. If you have questions, please contact your health care provider. INDICATION: Hip pain. Fall. TECHNIQUE: Three views. IMPRESSION: Anatomic alignment left hip without fracture. Intact pelvis. No significant degenerative or inflammatory change on the left. Moderate osteoarthritis narrowing on the right. Subchondral cystic lucency in the superior head neck offset. High attenuation presumed excreted IV contrast in the urinary bladder. There is lucent indentation the base which may be bowel gas or potentially median lobe of prostate enlargement. Normal SI joints and symphysis pubis. Dictated by Axel Gates MD @ 09/12/2022 1:44:18 PM (Electronically Signed) Labs on day of discharge: Labs from last 24 hours 09/13/22 07:40 WBC 5.57 RBC 4.22 L Hgb 13.1 L Hct 40.1 MCV 95 MCH 31 MCHC 33 RDW Coeff of Connor 13.5 Plt Count 146 Neut % (Auto) 65.1 Lymph % (Auto) 17.2 L Toole % (Auto) 7.4 Eos % (Auto) 9.9 H Baso % (Auto) 0.4 Neut # (Auto) 3.63 Lymph # (Auto) 1.00 Toole # (Auto) 0.40 Eos # (Auto) 0.60 H Baso # (Auto) 0.02 Abs Immat Gran (auto) 0.00 Imm/Tot Granulo (auto) 0.0 Sodium 135 Potassium 4.1 Chloride 106 Carbon Dioxide 26 BUN 16 Creatinine 0.9 Estimated Creat Clear 90.78 Estimated GFR 101 Glucose 127 H Calcium 9.0 Total Bilirubin 0.3 AST 57 H ALT 132 H Alkaline Phosphatase 76 Total Protein 5.6 L Albumin 3.4 Preliminary micro results at discharge 09/12/22 Unknown Urine Culture - Preliminary Urine Catheterized NO GROWTH AFTER 24 HOURS 09/11/22 22:32 Blood Culture - Preliminary Blood NO GROWTH AFTER 24 HOURS 09/11/22 22:23 Blood Culture - Preliminary Blood NO GROWTH AFTER 24 HOURS Discharge Plan Discharge Disposition: Home, Self-Care Date of Admission: 09/11/22 23:37 Attending Provider on Discharge: Carolina Narvaez Primary Care Provider: Washington Diaz Condition: Improved Anticipated Discharge Date/Time: 09/13/22 10:59 Discharge Medications: Continued ezetimibe [Zetia] 10 mg tablet 10 mg PO QDAY Qty: 90 3RF fluoxetine 40 mg capsule 40 mg PO QDAY Qty: 90 1RF nitroglycerin 0.4 mg tablet, sublingual 0.4 mg sublingual Q5M Rx Instructions: do not exceed 3 doses per episode aspirin [Aspirin Childrens] 81 mg tablet,chewable 81 mg PO DAILY omega 0-kaq-hev-fish oil [Fish Oil] 300-1,000 mg capsule 1 cap PO DAILY lisinopril 10 mg tablet 10 mg PO QDAY Qty: 90 1RF clopidogrel 75 mg tablet 75 mg PO QDAY Qty: 90 1RF rosuvastatin 40 mg tablet 40 mg PO QDAY Qty: 90 1RF metoprolol succinate 50 mg tablet extended release 24 hr 50 mg PO QDAY Qty: 90 1RF trazodone 100 mg tablet 50 - 100 mg PO QHS Qty: 90 1RF Discontinued lorazepam 1 mg tablet 1 - 2 mg PO TID PRN (Reason: anxiety) Qty: 60 0RF Discharge Orders: Discharge Order (Routine); Ordered 09/13/22 Ordered By: Carolina Narvaez Patient Education: Depression (DC), Abuse of Alcohol (DC) Additional Instructions: Use CPAP when napping or sleeping. Avoid alcohol use. Stop lorazepam. Keep appointment for therapy 09/24/22. F/u with PCP this week. Activity Level: No Restrictions Discharge Diet: Heart Healthy (2 gm sodium, low fat) Follow Up Appointments: Washington Diaz MD [Primary Care Provider] - (this week) Forms: Tomorrowish Info Instructions
[2022-09-13 11:02] VITALS: BP 114/67; PULSE 87; RESP 16; TEMP 36.6
--- NOTE | 2022-09-13 11:46 | PC.NURSE ---
Patient is much more alert this morning. On RA. Ambulating in the room with a steady gait. Refused to eat any breakfast - Pt has a flat affect. Discharge instructions were presented to patient and all questions were answered. IVs taken out of right AC and left hand. All forms were signed and belongings were sent. Pt ambulatory to the exit, accompanied by Lxmupu-pa-vkp who is very supportive.
== END 2022-09-13 11:23 | disposition home or self-care (01) | DRG 812 ==
LOC: ED 19:02 → MEDSURG 23:38
PROVIDERS: Family Medicine; Internal Medicine; Admitting Provider Family Medicine; Emergency Provider Emergency Medicine Emergency Medical Services; PCP Family Medicine; Visit Provider Family Medicine
DX: T42.4X4A Poisoning by benzodiazepines, undetermined, initial encounter (principal); J96.02 Acute respiratory failure with hypercapnia; I95.2 Hypotension due to drugs; R41.82 Altered mental status, unspecified; G47.33 Obstructive sleep apnea (adult) (pediatric); N17.9 Acute kidney failure, unspecified; F43.21 Adjustment disorder with depressed mood; F10.10 Alcohol abuse, uncomplicated; R42 Dizziness and giddiness; I24.8 Other forms of acute ischemic heart disease; E87.29 Other acidosis; F17.210 Nicotine dependence, cigarettes, uncomplicated; I25.10 Atherosclerotic heart disease of native coronary artery without angina pectoris; E78.5 Hyperlipidemia, unspecified; K21.9 Gastro-esophageal reflux disease without esophagitis; Y92.009 Unspecified place in unspecified non-institutional (private) residence as the place of occurrence of the external cause
CPT/HCPCS: 36415; 51701; 51702; 70450; 70496; 70498; 71045; 73502; 80048; 80053; 80143; 80179; 80306; 81003; 81015; 82077; 82550; 82803; 83605; 83690; 84145; 84443; 84484; 85025; 86140; 87040; 87086; 93005; 93306; 94660; 94761; 97116; 97161; 97165; 99284; 99285; A9270; J1650; J2310; J2405; J2543; J3370; J7030; J7120; Q9967

== ENCOUNTER 2022-09-18 09:48 | Outpatient (CLI) | payer OTHER, SELFPAY | END 2022-09-18 09:49 | disposition home or self-care (01) | PROVIDERS: PCP Family Medicine; Visit Provider Family Medicine | DX: E78.5 Hyperlipidemia, unspecified (principal); I10 Essential (primary) hypertension; F10.10 Alcohol abuse, uncomplicated; I95.9 Hypotension, unspecified | CPT/HCPCS: 80048; 80076 ==

== ENCOUNTER 2023-04-02 10:08 | Outpatient (CLI) | payer OTHER, SELFPAY ==
--- OUTSIDE RECORDS SUMMARY | 2023-04-02 10:12 | XMS_ITS | Encounter Summary ---
Author Name Unknown Organization [place] Address [facility] [place] [address] Care Team Providers Care Employment Instructional Associate Name Role Phone Juan F Gorman MD Primary Care Provider [phone] Jose Rafael Edmonds MD Unavailable Unavailable Washington Diaz MD Primary Care Provider [phone] Washington Morales MD Unavailable [phone] Reason for Visit * Reason Onset Date Comments Refill Request 10/21/2010 lisinopril Encounter Details Date Type Department Care Team (Late st Contact Info) Description 10/21/2010 Refill [facility] in [place] [facility] [address] [place] [address] [phone] Juan F Gorman MD [facility] [address] [place] [address] [address] [place], [place] [phone] Refill Request (lisinopril) Social History Tobacco Use Types Packs/Day Years Used Date Smoking Tobacco: Never Assessed Cigarettes 20 Smokeless Tobacco: Current Chew Comments:CHEW no smoking Alcohol Use Standard Drinks/Week Comments Yes 0 (1 standard drink = 0.6 oz pur e alcohol) Very seldom Sex and Gender Information Value Date Recorded Sex Assigned at Not on file Gender Identity Not on file Sexual Orientation Not on file documented as of this encounter Miscellaneous Notes * Telephone Encounter - Paulette Ramachandran - 10/21/2010 3:26 PM CDT Faxed request from pharmacy,will be directly faxed back if approved. PCP JAVED 10/08/09 .Primary MD out of office this week. Last visit: BP Readings from Last 1 Encounters: 10/08/09 126/74 CHOL 197 08/02/2010 TRIG 142 08/02/2010 HDL 49 08/02/2010 LDL 119 08/02/2010 documented in this encounter Plan of Treatment Not on file documented as of this encounter Visit Diagnoses Diagnosis CHR ISCHEMIC HRT DIS NEC(aka MYOCARDIAL) Other specified forms of chronic ischemic heart disease documented in this encounter Care Teams Employment Instructional Associate Relationship Specialty Start Date End Date Juan F Gorman MD [facility] [place] [address] [facility] [address] [place] [id number] PCP - General 03/17/04 05/08/19 Jose Rafael Edmonds MD [facility] [place] [address] [place] [address] [place] [phone] PCP - Orthopaedics Orthopedics 09/22/10 01/03/18 Washington Diaz MD [facility] [place] [address] [facility] [address] [place] [address] PCP - General Family Practice 05/09/19 Washington Morales MD [address] [place] [address] Assigned Surgical Provider 12/29/1911/09/20 documented as of this encounter
--- OUTSIDE RECORDS SUMMARY | 2023-04-02 10:12 | XMS_ITS | Encounter Summary ---
Author Name Unknown Organization [place] Address [facility] [place] [address] Care Team Providers Care Train Dispatcher Name Role Phone Juan F Gorman MD Primary Care Provider [phone] Jose Rafael Edmonds MD Unavailable Unavailable Encounter Details Date Type Department Care Team (Late st Contact Info) Description 02/17/2013 11:[address] [facility] [address] [place] [address] [phone] Jalil Rodrigez MD XXX RETIRED XXX [address] [place] [id number] Social History Tobacco Use Types Packs/Day Years Used Date Smoking Tobacco: Former Cigarettes 20 Smokeless Tobacco: Current Chew Comments:CHEW no smoking. 1 can every 2days Alcohol Use Standard Drinks/Week Comments Yes 0 (1 standard drink = 0.6 oz pur e alcohol) Very seldom Sex and Gender Information Value Date Recorded Sex Assigned at Not on file Gender Identity Not on file Sexual Orientation Not on file documented as of this encounter Plan of Treatment Not on file documented as of this encounter Visit Diagnoses Not on filedocumented in this encounter Care Teams Train Dispatcher Relationship Specialty Start Date End Date Juan F Gorman MD [address] [place], [place] [phone] PCP - General 03/17/04 05/08/19 Jose Rafael Edmonds MD [address] [place] [address] PCP - Orthopaedics Orthopedics 09/22/10 01/03/18 documented as of this encounter
--- OUTSIDE RECORDS SUMMARY | 2023-04-02 10:12 | XMS_ITS | Encounter Summary ---
Author Name Unknown Organization [place] Address Count includes the [facility] [place] [address] Care Team Providers Care Penal Officer Name Role Phone Juan F Gorman MD Primary Care Provider [phone] Jose Rafael Edmonds MD Unavailable Unavailable Washington Diaz MD Primary Care Provider [phone] Washington Morales MD Unavailable [phone] Encounter Details Date Type Department Care Team (Late st Contact Info) Description 03/03/2013 [facility] [address] [place] [phone] Frw, Inpatient Provider Social History Tobacco Use Types Packs/Day Years [...] on filedocumented in this encounter Care Teams Penal Officer Relationship Specialty Start Date End Date Juan F Gorman [facility] [address] [facility] [facility] [address] [place], [place] [phone] PCP - General 03/17/04 05/08/19 Jose Rafael Edmonds MD [address] [place] [address] PCP - Orthopaedics Orthopedics 09/22/10 01/03/18 Washington Diaz MD [facility] [address] [facility] [address] [place] [address] PCP - General Family Practice 05/09/19 Washington Morales MD [address] [facility] [address] [place] [address] Assigned Surgical Provider 12/29/1911/09/20 documented as of this encounter
--- OUTSIDE RECORDS SUMMARY | 2023-04-02 10:12 | XMS_ITS | Encounter Summary ---
Author Name Unknown Organization [place] Address [facility] [place] [address] Care Team Providers Care Grocery Caddy Name Role Phone Juan F Gorman MD Primary Care Provider [phone] Jalil Rodrigez MD Unavailable Unavailable Encounter Details Date Type Department Care Team (Late st Contact Info) Description 05/06/2009 7:14 PM [facility] in [address] [phone] Juan Luis Nagy MD [address] [place] [address] Social History Tobacco Use Types Packs/Day Years [...] on filedocumented in this encounter Care Teams Grocery Caddy Relationship Specialty Start Date End Date Juan F Gorman MD [address] [place] [address] PCP - General 03/17/04 05/08/19 Jalil Rodrigez MD [facility] [address] [facility] [address] [place] [address] PCP - Orthopaedics 07/19/07 09/21/10 documented as of this encounter
--- OUTSIDE RECORDS SUMMARY | 2023-04-02 10:12 | XMS_ITS | Encounter Summary ---
Author Name Unknown Organization [place] Address [facility] [place] [address] Care Team Providers Care Toeing Stockings Name Role Phone Juan F Gorman MD Primary Care Provider [phone] Jose Rafael Edmonds MD Unavailable Unavailable Washington Diaz MD Primary Care Provider [phone] Washington Morales MD Unavailable [phone] Reason for Visit * Reason Onset Date Comments Refill Request 05/01/2013 Encounter Details Date Type Department Care Team (Late st Contact Info) Description 05/01/2013 Refill [facility] [place] [facility] [address] [place] [phone] Jalil Rodrigez MD XXX RETIRED XXX [address] [place] [address] Refill Request Social History Tobacco Use Types Packs/Day Years [...] as of this encounter Visit Diagnoses Diagnosis Back pain- Primary Backache, unspecified documented in this encounter Care Teams Toeing Stockings Relationship Specialty Start Date End Date Juan F Gorman MD [address] [place], [place] [id number] PCP - General 03/17/04 05/08/19 Jose Rafael Edmond[address] MD [facility] [place] [address] [facility] [address] [place] [address] PCP - Orthopaedics Orthopedics 09/22/10 01/03/[address] [facility] [place] [address] [facility] [address] [place] [address] PCP - General Family Practice 05/09/19 Washington Morales MD [address] [facility] [address] [place] [address] Assigned Surgical Provider 12/29/1911/09/20 documented as of this encounter
--- OUTSIDE RECORDS SUMMARY | 2023-04-02 10:12 | XMS_ITS | Clinical Summary ---
Author Name Unknown Organization [place] Address [facility]ly [facility], [id number] [place] [address] Care Team Providers Care Vb Net Developer Name Role Phone Washington Diaz MD Primary Care Provider Allergies Active Allergy Reactions Criticality Noted Date Comments Atorvastatin Calcium Other (See Comments) Medium 11/21 Muscle aches Medications Medication Sig Dispensed Refills Start Date End Date Status ALLERGY MED PO generic takes 1 daily 0 Active aspirin EC 81 MG tablet Take 81 mg by mouth daily. 0 Active fluticasone (FLONASE) 50 MCG/ACT nasal sprayIndications:C hronic rhinitis Allyn 2 sprays into both nostrils daily. 1 Package 3 01/27/2012 Active Additional Information Patient taking differently:2 spray Both NostrilsDAILY PRN, Reported on 07/10/2019 lisinopril (PRINIVIL,ZESTRIL) 40 MG tabletIndications: Other specified forms of chronic ischemic heart disease Take 0.5 tablets (20 mg) by mouth daily 45 tablet 3 01/27/2013 Active nitroglycerin (NITROSTAT) 0.[address] 1 tablet (0.4 mg) under the tongue every 5 minutes as needed for chest pain 30 tablet 2 01/30/2013 Active clopidogrel (PLAVIX) 75 MG tablet Take 75 mg by mouth 0 10/25/2015 Activ e metoprolol succinate ER (TOPROL-XL) 50 MG 24 hr tablet Take 50 mg by mouth 0 10/25/2015 Act allen rosuvastatin (CRESTOR) 40 MG tablet 40 mg 0 05/02/2019 Active vitamin C (ASCORBIC ACID) 1000 MG TABS Take 1,000 mg by mouth daily 0 Active Probiotic Product (PROBIOTIC-10 PO) Take 1 capsule by mouth daily 0 Active omeprazole (PRILOSEC) [address] capsule Take 20 mg by mouth daily 0 Active oxyCODONE (ROXICODONE) 5 MG tabletIndications: Cholecystitis Take 1-2 tablets (5-10 mg) by mouth every 4 hours as needed for moderate to severe pain 10 tablet 0 07/14/2019 Active Active Problems Problem Noted Date Diagnosed Date Cholecystitis 05/12/2019 Overview: Added automatically from request for surgery [id number] Encounter for therapeutic drug monitoring 2006 Hyperlipidemia with target LDL less than 100 Overview: Simvastatin 80 mg- FDA alert discussed- he is allergic to Lipitor, Crestor. Simvastatin is well tolerated. Watch out for myalgias. Diagnosis updated by automated process. Provider to review and confirm. Chronic ischemic heart disease 02/04/2004 Overview: ID 1999 STent x 3 Problem list name updated by automated process. Provider to review Resolved Problems Problem Noted Date Diagnosed Date Resolved Date Rupture of Rotator Cuff of [place] (rehab dx) 02/20/2008 06/19/2008 Encounters for administrative purposes 01/13/2006 08/24/2006 Overview: Problem list name updated by automated process. Provider to review Immunizations Name Administration Dates Next Due Influenza (IIV3) PF 12/20/2012,01/04/2009 TD,PF 7+ (Tenivac) 11/12/2004 11/12/2014 Family History Medical History Relation Comments Prostate Cancer Maternal Grandfather Asthma No family hx of C.A.D. No family hx of Cancer - colorectal No family hx of Cerebrovascular Disease No family hx of Diabetes No family hx of Hypertension No family hx of Relation Status Comments Maternal Grandfather Social History Tobacco Use Types Packs/Day Years Used Date Smoking Tobacco: Former Cigarettes 20 Smokeless Tobacco: Current Chew Tobacco Cessation:Counseling Given: Yes Comments:CHEW no smoking. 1 can every 2days Alcohol Use Standard Drinks/Week Comments Yes 0 (1 standard drink = 0.6 oz pur e alcohol) Very seldom Sex and Gender Information Value Date Recorded Sex Assigned at Not on file Gender Identity Not on file Sexual Orientation Not on file Last Filed Vital Signs Vital Sign Reading Time Taken Comments Blood Pressure 125/88 07/14/2019 12:55 PM CDT Pulse 70 07/14/2019 10:15 AM CDT Temperature 36.6 ??C (97.8 ??F) 07/14/2019 12:55 PM C DT Respiratory Rate 15 07/14/2019 12:55 PM CDT Oxygen Saturation 93% 07/14/2019 12:55 PM CDT Inhaled Oxygen Concentration - - Weight 87.7 kg (193 lb 6.4 oz) 07/14/2019 6:40 A M CDT Height 172.7 cm (5' 8) 07/14/2019 6:40 AM CDT Body Mass Index 29.41 07/14/2019 6:40 AM CDT Plan of Treatment Not on file Care Teams Vb Net Developer Relationship Specialty Start Date End Date Washington Diaz MD PCP - General Family Practice 05/09/19
--- OUTSIDE RECORDS SUMMARY | 2023-04-02 10:12 | XMS_ITS | Referral Summary ---
Author Name Unknown Organization [place] Address [facility] [place] [address] Care Team Providers Care Catering Administrative Assistant Name Role Phone Washington Diaz MD Primary [...] (FLONASE) 50 MCG/ACT nasal sprayIndications:C hronic rhinitis Reynolds 2 sprays into both nostrils daily. 1 [...] Overview: Added automatically from request for surgery [id number] Encounter for therapeutic drug monitoring 2006 Hyperlipidemia with target LDL less than 100 Overview: Simvastatin 80 mg- FDA alert discussed- he is allergic to Lipitor, Crestor. Simvastatin is well tolerated. Watch out for myalgias. Diagnosis updated by automated process. Provider to review and confirm. Chronic ischemic heart disease 02/04/2004 Overview: [place] 1999 STent x 3 Problem list name [...] PF 12/20/2012,01/04/2009 TD,PF 7+ (Tenivac) 11/12/2004 11/12/2014 Social History Tobacco Use Types Packs/Day Years [...] of Treatment Not on file Care Teams Catering Administrative Assistant Relationship Specialty Start Date End Date Washington Diaz MD PCP - General Family Practice 05/09/19
--- OUTSIDE RECORDS SUMMARY | 2023-04-02 10:13 | XMS_ITS | Clinical Summary ---
Author Name [facility] [address] [place] [address] Care Team Providers Care Transformer Repairer Name Role Phone Jalil Rodrigez MD Primary Care Provider Unavail able Source Comments You are receiving this document as you are listed as the primary care provider,follow-up provider, or the patient has been referred to you for consultation.This is in compliance with the Medicare and[facility] Hospital[facility] EHR Incentive Program,which states Providers who transition their patient to another setting of careor provider of care or refers their patient to another provider of care shouldprovide summary care record for each transition of care or referral. Tistagames Allergies Active Allergy Reactions Criticality Noted Date Comments Atorvastatin Myalgias 10/24/2015 Pollen Extract Itching Medium 07/27/2017 Seasonal Allergies: Itchy watery eyes Medications Medication Sig Dispensed Refills Start Date End Date Status aspirin EC 81 MG enteric coated tablet Take 81 mg by mouth daily (every 24 hours). 0 09/11/2014 Active metoPROLOL tartrate (AKA LOPRESSOR) 100 MG tabletIndications:MIN GUTHRIE Sep 11, 2014 2:44 PM Received from: External Pharmacy Indications: PN: MIN SPENCER Sep 11, 2014 2:44 PM Received from: External Pharmacy 0 08/25/2014 Active lisinopril (AKA ZESTRIL) 20 MG tabletIndications:MIN GUTHRIE Sep 11, 2014 2:44 PM Received from: External Pharmacy Indications: PN: MIN SPENCER Sep 11, 2014 2:44 PM Received from: External Pharmacy 3 07/31/2014 Active ibuprofen (MOTRIN) 800 MG tablet Take 1 Tab by mouth every 8 hours as needed for Pain. 60 Tab 0 01/12/2017 Active rosuvastatin (CRESTOR) 40 MG tablet Take 40 mg by mouth. 0 12/10/2015 Active clopidogrel (PLAVIX) 75 MG tablet Take 75 mg by mouth. 0 10/25/2015 Active cyclobenzaprine (FLEXERIL) 10 MG tablet Take 1 Tablet by mouth three times a day as needed. 20 Tablet 0 12/13/2017 Active Active Problems No known active problems Social History Tobacco Use Types Packs/Day Years Used Date Smoking Tobacco: Former Smokeless Tobacco: Current Chew Alcohol Use Standard Drinks/Week Comments Yes 3 (1 standard drink = 0.6 oz pur e alcohol) Sex and Gender Information Value Date Recorded Sex Assigned at Not on file Gender Identity Not on file Sexual Orientation Not on file Last Filed Vital Signs Vital Sign Reading Time Taken Comments Blood Pressure 120/63 01/12/2017 1:11 PM LAPEL PADDER Pulse 73 01/12/2017 1:11 PM LAPEL PADDER Temperature 37 ??C (98.6 ??F) 12/13/2017 2:42 PM CDT Respiratory Rate 20 01/12/2017 1:11 PM LAPEL PADDER Oxygen Saturation 92% 01/12/2017 1:11 PM LAPEL PADDER Inhaled Oxygen Concentration - - Weight 89.8 kg (198 lb) 12/13/2017 2:42 PM CDT Height 170.2 cm (5' 7) 12/13/2017 2:42 PM CDT Body Mass Index 31.01 12/13/2017 2:42 PM CDT Plan of Treatment Health Maintenance Due Date Last Done Comments Colon Cancer Screening Plan Due 1965 Hep C Screening (Preventive Services) 1965 HepB (1) 1965 PSA Screening Discussion 1967 COVID-19 Vaccine (#1) 05/22/1968 HIV Screening (Preventive Services) 1983 Adult Preventive Visit 11/22/1985 Cholesterol 11/22/2002 Zoster/Shingles (1 of 2) 11/22/2017 Influenza (#1) 2022 01/23/2020, 11/, 01/28/2018, Additional history exists DTaP/Tdap/Td (2 - Tdap) 06/04/2026 06/05/19 17, 08/20/2010, 11/12/2004 HepA Aged Out No longer eligi ble based on patient's age to complete this topic Hib Aged Out No longer eligi ble based on patient's age to complete this topic IPV (Polio) Aged Out No longer eligi ble based on patient's age to complete this topic MCV4 Aged Out No longer eligi ble based on patient's age to complete this topic Pneumococcal Aged Out No longer eligi ble based on patient's age to complete this topic Care Teams Transformer Repairer Relationship Specialty Start Date End Date Jalil Rodrigez MD PCP - General 09/11/14
--- OUTSIDE RECORDS SUMMARY | 2023-04-02 10:13 | XMS_ITS | Encounter Summary ---
Author Name Unknown Organization [place] Address [facility] [place] [address] Care Team Providers Care Motor Vehicle Assembly Supervisor Name Role Phone Juan F Gorman MD Primary Care Provider [phone] Jalil Rodrigez MD Unavailable Unavailable Jose Rafael Edmonds MD Unavailable Unavailable Washington Diaz MD Primary Care Provider [phone] Washington Morales MD Unavailable [phone] Encounter Details Date Type Department Care Team (Late st Contact Info) Description 08/03/2007 Telephone [facility] [place] [facility] [address] [place] [phone] Jalil Rodrigez MD XXX RETIRED XXX [address] [place] [phone] Social History Tobacco Use Types Packs/Day Years Used Date Smoking Tobacco: Former Cigarettes 1.5 20 Q uit: 08/06/2000 Smokeless Tobacco: Former Chew Quit: 08/06/2000 Alcohol Use Standard Drinks/Week Comments Yes 0 (1 standard drink = 0.6 oz pur e alcohol) Very seldom Sex and Gender Information Value Date Recorded Sex Assigned at Not on file Gender Identity Not on file Sexual Orientation Not on file documented as of this encounter Miscellaneous Notes * Telephone Encounter - Umm Perez - 08/03/2007 10:43 AM CDT 07/29/2007: Telephone note. The patient was contacted regarding his Gadolinium arthrogram MRI scan which shows a large full thickness rotator cuff tendon tear of the supraspinatus. He was assessed of this information. Overall he is doing well from the time of his injection. He would like to try to hopefully put off any repairuntil the fall of this year. He would be considered possibly a candidate for repeat palliative injection although the cons of doing this as well as the pros of this were also discussed. He will follow up then per plan. Jalil Rodrigez M.D. SARA/jose documented in this encounter Plan of Treatment Not on file documented as of this encounter Visit Diagnoses Not on filedocumented in this encounter Care Teams Motor Vehicle Assembly Supervisor Relationship Specialty Start Date End Date Juan F Gorman MD [facility] [place] [address] [address] PCP - General 03/17/04 05/08/19 Jalil Rodrigez MD [facility] [place] [address] [place] [address] PCP - Orthopaedics 07/19/07 09/21/10 Jose Rafael Edmonds MD [facility] [place] [address] [place] [address] PCP - Orthopaedics Orthopedics 09/22/10 01/03/18 Washington Diaz MD [facility] [place] [address] [place] [address] PCP - General Family Practice 05/09/19 Washington Morales MD [address] [facility] [address] [place] [address] Assigned Surgical Provider 12/29/1911/09/20 documented as of this encounter
--- OUTSIDE RECORDS SUMMARY | 2023-04-02 10:13 | XMS_ITS | Encounter Summary ---
Author Name Unknown Organization [place] Address [facility] [place] [address] Care Team Providers Care Exhibitions And Collections Manager Name Role Phone Juan F Gorman MD Primary Care Provider [phone] Jalil Rodrigez MD Unavailable Unavailable Encounter Details Date Type Department Care Team (Late st Contact Info) Description 02/10/2008 6:27 AM [facility] in [address] [phone] Jalil oRdrigez MD XXX RETIRED XXX [address] [place] [id number] Social History Tobacco Use Types Packs/Day Years [...] on file documented as of this encounter Progress Notes * Jalil Rodrigez MD - 02/20/2008 10:10 AM CSTPROCEDURE/OPERATIVE REPORT Date of Procedure: 02/10/2008 PREOPERATIVE DIAGNOSIS: Right shoulder impingement and full thickness rotator cuff tendon tear. POSTOPERATIVE DIAGNOSIS: Right shoulder impingement and full thickness rotator cuff tendon tear. PROCEDURE: Exam under anesthesia, diagnostic arthroscopy, diagnostic bursoscopy, arthroscopic acromioplasty and mini-opening deltoid splitting full thickness rotator cuff tendon tear. ANESTHESIA: General scalene block. SURGEON: Jalil Rodrigez M.D. PROCEDURE: The patient was brought to the operating room and positioned. The scalene block had been administered. He was then rolled to a left lateral decubitus position and the shoulder was then sterilely prepped and draped in the quiros bag with suspension. After preparation, the landmarks were outlined with a marking pen. 1% Xylocaine with epinephrine was injected from the posterior approach. After this was accomplished, a posterior portal was placed. The arthroscopic shaver was inserted without difficulty and normal saline was used for irrigation. Examination of subacromial space showed a massive amount of scar tissue and impingement. There was also a very large tear evident in the rotator cuff of the supraspinatus and into the infraspinatus. A lateral portal was placed. Debridement of bursitis and the soft tissue from the undersurface of the acromion further clarified the problem. The patient had a passive tear, almost 2 inches in length along the greater tuberosity and at least 2-1/2 inches in length to the glenoid. The biceps tendon was basically untouched. The arthroscopic sleeve was inserted at the glenohumeral joint. Examination there demonstrated normal articular surface of the humeral head and glenoid, although there was a mild abraded area to the posterolateral inferior humeral head region. The labrum appeared intact. Remnants of rotator cuff were debrided from the inside of the joint. The biceps tendon and take off appeared to be intact through the hiatus area. After this was achieved, attention was turned back to the subacromial space. Following further debridement of the soft tissue, an acromioplasty was accomplished utilizing various curets, power trimmers and Bovie. A kebly was then inserted, and acromioplasty was accomplished beveling this from anterior to posterior and lateral towards medial. Copious suction irrigation was done to remove all debris. After this was accomplished, further hemostasis obtained. There appeared to be very adequate decompression obtained. The soft tissue was further tidied up with a power resector. After copious flushing and irrigation of debris, the excess fluid was removed and the instruments were withdrawn. The lateral portal was then extended to a 4 centimeter position. This was carried down through the skin and subcutaneous tissue which was infiltrated with 1% Xylocaine and epinephrine. The deltoid was then split longitudinally. A deeper retractor was placed. After further release of the bursal tissue, the massive rotator cuff defect was identified with pretty much triangular in nature. Various tools were utilized, as well as #2 Ethibond and #2 FiberWire with a suture anchor to close the defect which was then oversewn with 0-Vicryl. There appeared to be a very good repair obtained with no significant tensioning. Multiple drill holes were placed at the base of the tuberosity. After copious irrigation, examination again showed a good repair. A Marcaine catheter was then introduced in the posterior aspect. The Marcaine was instilled. Repair was then accomplished with #1 Vicryl deep, 2-0 Vicryl subcutaneously and nylon for skin closures. A sterile dressing was applied. The patient was then rolled to a supine position, awakened from anesthesia and brought to the recovery room in satisfactory condition having tolerated the surgery well. Jalil Rodrigez M.D. SARA/nba cc: ON BAG CLIPPER documented in this encounter Plan of Treatment Not on file documented as of this encounter Visit Diagnoses Not on filedocumented in this encounter Care Teams Exhibitions And Collections Manager Relationship Specialty Start Date End Date Juan F Gorman MD [address] [address] PCP - General 03/17/04 05/08/19 Jalil Rodrigez MD [address] [address] PCP - Orthopaedics 07/19/07 09/21/10 documented as of this encounter
--- OUTSIDE RECORDS SUMMARY | 2023-04-02 10:13 | XMS_ITS | Encounter Summary ---
Author Name Unknown Organization [place] Address [facility] [place] [address] Care Team Providers Care Merchandising Lead Name Role Phone Juan F Gorman MD Primary Care Provider [phone] Jalil Rodrigez MD Unavailable Unavailable Jose Rafael Edmonds MD Unavailable Unavailable Washington Diaz MD Primary Care Provider [phone] Washington Morales MD Unavailable [phone] Encounter Details Date Type Department Care Team (Late st Contact Info) Description 03/18/2005 [facility] [place] Inpatient Dept [address] [place] [address] Frw, Inpatient Provider Social History Tobacco [...] as of this encounter Progress Notes * Misha King - 03/18/2005 9:10 AM CSTHISTORY AND PHYSICAL DATE OF ADMISSION: 03/18/2005 CHIEF COMPLAINT: 1. Abdominal pain. 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 The pain has been persistent but occasionally sharp and severe at times, and he has had associated nausea and an episode of vomiting this morning. He actually had a bowel movement this morning. REVIEW OF SYSTEMS: General - he denies any fevers. He did have some chills earlier. Eyes - negative for acute vision changes. ENT - negative. Respiratory - negative. Cardiovascular - negative for chest pain. Stress test in November of 2004 was normal. GI - negative for hematemesis, hematochezia or melena. - negative. Remainder of systems negative. PAST MEDICAL HISTORY: 1. Coronary artery disease, status post myocardial infarction in 1999 with stent placement x 3 at that time. 2. Hyperlipidemia. 3. Hypertension. 4. Impaired fasting glucose in the past. 5. Gastroesophageal reflux disease. ALLERGIES: No known allergies. PAST SURGICAL HISTORY: 1. Appendectomy many years ago. MEDICATIONS: 1. Aspirin 325 milligrams daily. 2. Lisinopril 10 milligrams daily. 3. Metoprolol tartrate 50 milligrams daily. 4. Nitro-Stat 0.4 milligrams SL as needed. 5. Gemfibrozil 600 milligrams twice daily. 6. Prevacid 15 milligrams daily. 7. Crestor 20 milligrams daily. 8. Foltx 1 tablet daily. FAMILY HISTORY: Negative for problems with gut, heart, diabetes. SOCIAL HISTORY: The patient is a nonsmoker, nondrinker. 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 He has been , has children. Lives in [place]. PHYSICA EXAMINATION: Vital signs - T 97.3. P 78. R 16. BP 129/67. O2 saturation currently on room air. Weight 192.7 lb. General - he is pleasant, awake, lying in bed. Eyes - Extraocular muscle movements intact. Pupils equal, round, reactive to light, accommodation. Anicteric sclerae. ENT - oropharynx clear. Mucous membranes moist. Neck - no jugular venous distension or thyromegaly or lymphadenopathy. Chest - clear to auscultation without any rales or wheezes. Cardiovascular - regular rate and rhythm. Abdomen - distended, tympanitic. Bowel sounds are absent. Tender diffusely but greatest on the middle of the abdomen umbillically. Skin - without any rashes or edema. Neurologic - awake, alert, oriented. Moves all extremities. LABORATORY AND STUDIES: Reviewed. Include a urinalysis which was normal, CBC which was normal. Basic metabolic profile significant for glucose of 108. AST, ALT, other liver profiles normal. Amylase and lipase normal. Chest x-ray was normal. Abdominal films showed multiple air fluid levels and dilated loops of small bowel. CT of the abdomen confirmed the same. No other abnormalities were noted. IMPRESSION: 1. Acute abdominal pain, secondary to small bowel obstruction. 2. History of ischemic coronary artery disease. 3. History of hyperlipidemia. 4. History of impaired fasting glucose. RECOMMENDATIONS: 1. At this time, the patient did not tolerate placement of NG tube and he is nauseated. Will keep him NPO and on IV fluids. 2. General Surgical Consult has been made in the Emergency Room and patient evaluation is pending. 3. We will hold any other unnecessary medications. He can have his metoprolol with small sips of water. Will hold aspirin and lipemic agents. We will continue him on proton pump inhibitor. Msiha King M.D. CEZAR/oskar cc: NETWORK ARCHITECT * Juan F Starks MD - 03/18/2005 9:10 AM CSTCONSULTATION REQUESTING PHYSICIAN: Dr. King SURGEON: Dr. Starks REASON FOR CONSULTATION: Abdominal pain. Question of small bowel obstruction. HISTORY OF PRESENT ILLNESS: Mr. Duncan is a 39-year-old male admitted to the hospital this morning for abdominal pain and small bowel distention. He's a gentleman who lives at home with his and his child. His and his child went through significant episodes of gastroenteritis with nausea, vomiting, diarrhea. His has just resolved the situation. His son resolved about a week or so ago. He states that he, much like his and son, awakened about 3:30 this morning with acute onset of abdominal pain. It was severe enough that he presented to the Emergency Room and on the way to the Emergency Department, had one episode of an emesis. At the time of the Emergency Room evaluation, he was noted to have a white blood cell count of 5.6 and a hemoglobin of 15.4. Urinalysis was unremarkable. Serum electrolytes were within normal limits. He underwent a CT scan of the abdomen and pelvis which shows global distention of the small intestine. There is gas and air fluid levels but there is also gas and air fluid levels throughout the colon. Question of a small bowel obstruction. He apparently had a nasogastric tube placed in the Emergency Department because of the question of small bowel obstruction. He wanted it removed and refuses for any replacement of the tube. Of note, additionally he was afebrile and liver function studies and lipase were within normal limits. Since the time of admission, which has been this morning, he's continued to pass a significant amount of flatus, some loose stool. His abdominal pain is low grade about 3 out of 10. He's had no oral intake but he's had no nausea and no vomiting. ALLERGIES: He denies any drug allergies. MEDICATIONS: His current medications are aspirin, Lisinopril, Metoprolol, Nitrostat, Gemfibrozil, Prevacid, Crestor, and folate. PAST SURGERY: An appendectomy many years ago through a right lower quadrant open incision. PAST MEDICAL HISTORY: Significant for coronary artery disease, myocardial infarction, and stent placement, hyperlipidemia, hypertension, impaired glucose testing, gastroesophageal reflux disease. FAMILY HISTORY: No significant contributory malignancies. SOCIAL HISTORY: Patient lives in [place]. He's and has children. 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 REVIEW OF SYSTEMS: On pertinent review of systems, and son sick with similar illnesses. He's had no fevers at home. He's had no prior episodes of this abdominal pain. He's had no chills. He ate last night a normal meal. He's currently very hungry. He's had nothing to eat since the time of admission. He's had no recent chest pain, no shortness of breath, no cough, no cold, no seizures, fainting, or dizziness. He had a loose stool yesterday as well as one today. No new bone or joint pains. EXAMINATION: Today on examination, he's resting comfortably in bed. Head, eyes, ears, nose, and throat is unremarkable. Lungs are clear. Heart is regular. Abdomen is soft, nondistended, nontympanitic. He does have some soft general bowel sounds. No tenderness is elicited at this time. There is no inguinal or femoral hernias. He has a right lower quadrant incision which shows no evidence of hernias. The extremity examination is unremarkable. LABORATORY DATA: Please see history of present illness. ASSESSMENT / PLAN: 39-year-old male. Abdominal pain, unknown etiology. At this time given the clinical history as well as the family members that are involved, it's most suspicious for gastroenteritis. This has been very prevalent in the community. His CT scan does demonstrate distention of the small intestine but it's almost essentially all the small intestine that may represent a component of an ileus. Given the history of previous abdominal surgeries, we did talk about the possibility of an adhesive obstruction, although he's had no nausea, no vomiting with this and continues to pass flatus. Therefore, I think we'll defer placing a nasogastric tube and place small bowel obstruction as a second possibility. There are no indications for surgery at this time. We did talk about continuing to watch the gas pattern on x-rays as well as watch for fever and elevation of white blood cell count and/or change in physical examination. After our discussion, he and his had all their questions asked and answered, and they agree with the plan. I would keep him nothing by mouth today and pending laboratory and x-ray work tomorrow, if that's okay and/or improved, will institute diet. 30 minutes spent with the patient, 20 minutes in discussion. Alex Padron/mikael cc: Dr. King Misha House D - 03/18/2005 9:10 AM CSTDISCHARGE SUMMARY Admission Date: 03/18/2005 Discharge Date: 03/19/2005 ADMITTING DIAGNOSIS: Abdominal pain. DISCHARGE DIAGNOSIS: Acute abdominal pain due to viral gastroenteritis and paralytic ileus, resolved. 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 X-ray in the emergency department was suspicious for small bowel obstruction. Therefore he was admitted for further evaluation and treatment. HOSPITAL COURSE: Patient was started on intravenous fluids, intravenous antiemetics and pain medications and tolerated quite well. He did have a surgical consultation by Dr. Starks and this was felt to be more likely viral enteritis. A follow-up abdominal film was performed the next morning and improvement in ileus was noted. The patient is tolerating a regular diet this morning, eating eggs, werner and an Russian muffin. DISCHARGE INSTRUCTIONS: Patient is being dismissed to home. DISCHARGE MEDICATIONS: As he was taking prior to hospitalization and listed on discharge orders. Discharge follow-up with Dr. Gorman in 4 days, March 23, 2005. Misha King M.D. cc: Roxy NETWORK ARCHITECT documented in this encounter Plan of Treatment Not on file documented as of this encounter Procedures Procedure Name Priority Date/Time Associated Diagnosis Comments HC X-RAY ABDOMEN COMPLETE Routine 03/19/2005 documented in this encounter Results * X-RAY ABDOMEN 2 VW (03/19/2005) Anatomical Region Laterality Modality Other Narrative 03/19/2005 PATIENT NAME: ??LUCERO DUNCAN DATE OF : 69 DATE OF SERVICE: ??03-19-05 ORDERING PHYSICIAN: ??JOEL PATIENT STATUS: ??INPT ??3203 SUPINE AND UPRIGHT VIEWS OF THE ABDOMEN: HISTORY: ??Small bowel obstruction. The lung bases are clear. ??No free air. The patient had a CT yesterday. ??The oral contrast now is dispersed throughout the colon. ??There is not dilatation of the small bowel or the colon. There are a few air fluid levels scattered in the abdomen. ?? IMPRESSION: The bowel gas pattern is now normal. Hector Carmen M.D./tiffanie D: 03-19-05 T: 03-19-05 K[employer] GENERAL IMAGING documented in this encounter Visit Diagnoses Not on filedocumented in this encounter Care Teams Merchandising Lead Relationship Specialty Start Date End Date Juan F Gorman MD [facility] [place] [address] [place] [address] PCP - General 03/17/04 05/08/19 Jalil Rodrigez MD [facility] [place] [address] [place] [address] PCP - Orthopaedics 07/19/07 09/21/10 Jose Rafael Edmonds MD [facility] [place] [address] [place] [address] PCP - Orthopaedics Orthopedics 09/22/10 01/03/18 Washington Diaz MD [facility] [place] [address] [place] [address] PCP - General Family Practice 05/09/19 Washington Morales MD [address] [facility] [address] [place] [address] Assigned Surgical Provider 12/29/1911/09/20 documented as of this encounter
--- OUTSIDE RECORDS SUMMARY | 2023-04-02 10:13 | XMS_ITS | Clinical Summary ---
Author Name Unknown Organization [facility] Address [place], [place] [address] Care Team Providers Care Frit Burner Name Role Phone Washington Diaz MD Primary Care Provider + Allergies Active Allergy Reactions Criticality Noted Date Comments Atorvastatin Myalgia 10/24/2015 Medications Medication Sig Dispensed Refills Start Date End Date Status aspirin chewable 81 mg chewable tabletIndications:At herosclerosis of [place] coronary artery of [place] heart with unstable angina pectoris (HC) Take 1 tablet by mouth or nasogastric tube once daily. 0 10/25/2015 Active lisinopril (PRINIVIL; ZESTRIL) 10 mg tabletIndications:At herosclerosis of [place] coronary artery of [place] heart with unstable angina pectoris (HC) Take 1 tablet by mouth once daily. 30 tablet 3 10/25/2015 Active clopidogrel (PLAVIX) 75 mg tabletIndications:At herosclerosis of [place] coronary artery of [place] heart with unstable angina pectoris (HC) Take 1 tablet by mouth once daily. Take daily for 1 year without interruption. 30 tablet 11 10/25/2015 Active nitroglycerin (NITROSTAT) 0.4 mg sublingual tabletIndications:At herosclerosis of [place] coronary artery of [place] heart with unstable angina pectoris (HC) Place 1 tablet under the tongue every 5 minutes if needed for Chest Pain (first choice for chest pain). 25 tablet 2 10/25/2015 Active metoprolol succinate (TOPROL XL) 50 mg sustained-release tabletIndications:At herosclerosis of [place] coronary artery of [place] heart with unstable angina pectoris (HC),HTN (hypertension) Take 1 tablet by mouth once daily. 30 tablet 0 10/25/2015 Active rosuvastatin (CRESTOR) 40 mg tablet Take 1 tablet by mouth at bedtime. 0 12/10/2015 Active ascorbic acid, vitamin C, (VITAMIN C) 1,000 mg tablet Take 1,000 mg by mouth once daily. 0 Active ezetimibe (ZETIA) 10 mg tablet Take 10 mg by mouth once daily. 0 Active omeprazole 20 mg tablet Take 20 mg by mouth once daily. 0 Active Coenzyme Q10 200 mg capsule Take by mouth once daily. 0 Active icosapent ethyL (Vascepa) 1 gram capsuleIndications:A rteriosclerotic heart disease,LONG (dyspnea on exertion),Other hyperlipidemia Take 2 g by mouth 2 times daily with meals. 360 Capsule 1 03/27/2021 Active Active Problems Problem Noted Date Diagnosed Date Hypertriglyceridemia 04/25/2021 Mixed hyperlipidemia 04/25/2021 Coronary artery disease invo lving [place] coronary artery of [place] heart without angina pectoris 04/25/2021 SOB (shortness of breath) 04/25/2021 Frequent headaches 04/25/2021 Unstable angina 10/25/2015 Other and unspecified hyperlipidemia 08/16/2006 Esophageal reflux 08/16/2006 Chest pain, unspecified 08/16/2006 Coronary atherosclerosis of unspecified type of vessel, [place] or graft Overview: -HI . -Angio/PCI 02/10/00: LAD - minimal irregularities. 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 mCx 70%. RCA dominant. Distal RCA/PDA - 95%. LEOBARDO 80%. BMS to mCx, PDA, and LEOBARDO. -Angio 02/16/00: Stents patent. -Angio 04/29/00: Without sign. change from 02/16/00. Esophageal reflux Family History Medical History Relation Name Comments Cancer Father of pancrea tic cancer Heart Disease Father [place] 36 years ol d. Heart Disease Maternal Grandmother Heart Disease Paternal Grandmother Relation Name Status Comments Father Maternal Grandmother Mother Alive Paternal Grandmother Social History Tobacco Use Types Packs/Day Years Used Date Smoking Tobacco: Former Cigarettes 1.5 15 0 03/08/1984 - 03/08/1999 Smokeless Tobacco: Current Chew Tobacco Cessation:Ready to Q uit: No; Counseling Given: Yes Comments:Chews tobacco. Alcohol Use Standard Drinks/Week Comments Yes 0 (1 standard drink = 0.6 oz pur e alcohol) one drink a month PHQ-2 Answer Date Recorded PHQ-2 TOTAL SCORE 0 01/12/2020 Social Connections Answer Date Recorded Frequency of Communication with Friends and Fami ly Not on file 03/03/2021 Financial Resource Strain Answer Date R ecorded Difficulty of Paying Living Expenses Not on file 03/03/2021 Difficulty of Paying Living Expenses Not on file 03/03/2021 Sex and Gender Information Value Date Recorded Sex Assigned at Not on file Gender Identity Not on file Sexual Orientation Not on file Obstetrics History Last Filed Vital Signs Vital Sign Reading Time Taken Comments Blood Pressure 137/69 03/10/2021 8:27 AM [facility] Pulse 74 03/10/2021 8:27 AM [facility] Temperature 36.7 ??C (98.1 ??F) 01/13/2020 7:43 AM CS T Respiratory Rate 16 02/23/2020 2:07 PM [facility] Oxygen Saturation 95% 01/13/2020 7:43 AM [facility] Inhaled Oxygen Concentration - - Weight 87.5 kg (193 lb) 02/23/2020 2:07 PM [facility] Height 172.7 cm (5' 8) 01/12/2020 10:45 AM [facility] Body Mass Index 29.35 01/12/2020 10:45 AM [facility] Plan of Treatment Health Maintenance Due Date Last Done Comments COVID-19 vaccine series (#1) 05/22/1968 Tdap 11/22/1978 HIV for age 15-65 11/22/1982 BMI (ht and wt on same day) for age 18+ 11/22/1985 Hepatitis C screening for age 18-79 11/22/1985 Tetanus booster 1987 Colonoscopy through age 75 11/22/2012 Zoster (shingles) series for age 50+ (1 of 2) 11/22/2017 Depression screening for age 12+ 01/11/2021 01/12/2020 Influenza for age 50-64 11/06/2022 Lipids for age 45-75 01/11/2025 01/12/2020, 10/25/2015, 08/16/2006, Additional history exists Pneumococcal series for age 6-64 Aged Out No longer eligible based on patient's age to complete this topic Advance Directives Latest Code Status on File Code Status Date Activated Date Inactivated Comments Full Code 01/12/2020 11:10 AM 01/13/2020 11:38 AM Question Answer Comments Code Status Discussion: Not Discussed Code Status History Code Status Date Activated Date Inactivated Comments Full Code 10/24/2015 2:12 PM 10/25/2015 1:36 PM Full Code 10/24/2015 12:14 AM 10/24/2015 2:12 PM Full Code 08/16/2006 10:15 AM 08/16/2006 10:20 PM Care Teams Frit Burner Relationship Specialty Start Date End Date Washington Diaz MD [address] [place] [address] PCP - General Family Practice 01/08/20
== END 2023-04-02 10:09 | disposition home or self-care (01) ==
PROVIDERS: PCP Family Medicine; Visit Provider Family Medicine
DX: E78.2 Mixed hyperlipidemia (principal); Z12.5 Encounter for screening for malignant neoplasm of prostate; I25.10 Atherosclerotic heart disease of native coronary artery without angina pectoris; F10.10 Alcohol abuse, uncomplicated
CPT/HCPCS: 80048; 80061; 80076; G0103

== ENCOUNTER 2024-02-18 09:58 | Outpatient (CLI) | payer OTHER, SELFPAY | END 2024-02-18 09:59 | disposition home or self-care (01) | PROVIDERS: PCP Family Medicine; Visit Provider Family Medicine | DX: E78.2 Mixed hyperlipidemia (principal); I10 Essential (primary) hypertension | CPT/HCPCS: 80048; 80061; 84460 ==

== ENCOUNTER 2024-12-07 09:50 | Outpatient (CLI) | payer OTHER, SELFPAY | END 2024-12-07 09:51 | disposition home or self-care (01) | PROVIDERS: PCP Family Medicine; Visit Provider Family Medicine | DX: Z12.5 Encounter for screening for malignant neoplasm of prostate (principal); I10 Essential (primary) hypertension; E78.2 Mixed hyperlipidemia | CPT/HCPCS: 80048; 80061; 84460; 85025; G0103 ==